=== PATIENT | male | born 2000 | race Caucasian/White ===

== ENCOUNTER → 2018-04-05 09:03 | Outpatient (CLI) | payer MEDICAID, SELFPAY ==
--- NOTE | 2018-04-05 09:06 | MR_ITS ---
MR lumbar spine wo con, MR 3-d myelogram/MRCP HISTORY: ITS.REASON: LUMBAGO WITH SCIATICA Picked up heavy object and back popped and had LBP. Twisted back and has tingling and pain in rt leg. X2WKS. ORDERING PHYSICIAN: Verónica Mak MD PATIENT AGE: 17 years Comparison: None TECHNIQUE: Standard multiplanar multiecho sequences are performed without contrast. 3-D MIP and myelographic images are also rendered and reviewed FINDINGS: There is normal alignment. The spinal cord ends at the L1 level. L1-L2: Unremarkable. L2-L3: Unremarkable. L3-L4: Unremarkable. L4-L5: Mild facet and ligamentum flavum hypertrophic change. Unremarkable disc space. L5-S1: There is mild degenerative disc disease with decrease in the disc space and mild disc desiccation. There is a small broadbase Central and left paracentral disc protrusion which abuts the anteromedial aspect of the left S1 nerve root with mild left lateral recess narrowing. No canal stenosis or other significant anomalies. IMPRESSION: 1. Small broad-based central/left paracentral disc protrusion at L5-S1 causing mild left lateral recess narrowing and abutting the anteromedial aspect of the left S1 nerve root 2. Otherwise negative MRI of the lumbar spine
--- NOTE | 2018-04-05 09:12 | XR_ITS ---
XR orbit bilateral min 4V HISTORY: History of metallic foreign body in the eyes. Clearance for MRI needed ITS.REASON: RULE OUT METAL FOREIGN BODY FOR MRI ORDERING PHYSICIAN: Verónica Mak MD PATIENT AGE: 17 years Comparison: None TECHNIQUE: AP views are obtained of the orbits with the patient looking up and down FINDINGS: No radio opaque foreign bodies evident. IMPRESSION: No radio opaque orbital foreign body identified
== END ==
PROVIDERS: PCP Family Medicine; Visit Provider Emergency Medicine
DX: H05.53 Retained (old) foreign body following penetrating wound of bilateral orbits (principal); M54.41 Lumbago with sciatica, right side; M54.42 Lumbago with sciatica, left side
CPT/HCPCS: 70200; 72148; 76376

== ENCOUNTER 2018-04-24 11:00 | Outpatient (RCR) | payer MEDICAID, SELFPAY ==
--- NOTE | 2018-04-05 12:02 | HMH.PTOPEV ---
PT Outpatient Evaluation Rehab PT Outpatient Evaluation Start: 04/05/18 11:17 Freq: Status: Active Protocol: Document 04/05/18 11:46 SILVESTRE (Rec: 04/05/18 12:02 MAURIGURJIT [id number]) Electronically Signed By Tristen Nieto, PT 04/05/18 11:46 Outpatient Therapy Subjective History Subjective History Patient is a 17 year old male presenting to outpatient PT with reports of acute low back pain with intermittent BLE (R >L) radicular symptoms starting 03/24/18. 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 He reports that he felt a pop and his back locked up. Approx 2 weeks later he was performing some twisting activity and experienced shooting pain down both legs which eventually became pain to the RLE only. He most recently was prescribed oral steroids which has provided near full relief of symptoms. Pt had a lumbar spine MRI today. No report of images yet, but images indicate multiple possible disc bulges. Set patient with preventative/maintenance HEP to perform until round of steroids is finished. No other comoribities to report. Chief Complaint Pain Spasms Paresthesia Symptom Type Ache Sharp Dull Shooting Symptoms Relieved By Rest/Positioning Ice Symptoms Aggravated By Sitting Standing Bending/Stooping Physical Activity Walking Lifting Prior Functional Limitations None Current Functional Limitations Reaching Lifting Housework Standing Sitting
== END 2018-04-24 11:10 | disposition home or self-care (01) ==
LOC: PT 11:00
PROVIDERS: Visit Provider Emergency Medicine
DX: M54.41 Lumbago with sciatica, right side (principal); M54.42 Lumbago with sciatica, left side
CPT/HCPCS: 97010; 97014; 97035; 97110; 97140; 97163; G0283

== ENCOUNTER → 2019-09-29 13:26 | Outpatient (CLI) | payer OTHER, SELFPAY ==
[2019-09-30 19:01] LABS: Covid-19 Nasal PCR Sendout UK Not Detected
== END ==
PROVIDERS: PCP Family Medicine; Visit Provider Family Medicine
DX: Z03.818 Encounter for observation for suspected exposure to other biological agents ruled out (principal)
CPT/HCPCS: U0003

== ENCOUNTER 2020-09-20 19:20 | Emergency (ER) | payer OTHER, SELFPAY ==
[2020-09-20 19:32] VITALS: BP 140/84; PULSE 83; RESP 16; TEMP 36.8; O2SAT 98; BMI 21.8
--- NOTE | 2020-09-20 20:10 | HMH.EDUTC ---
[facility] [place] Clinical Impression: Facial laceration Qualifiers: Encounter type: initial encounter Qualified Code(s): S01.81XA - Laceration without foreign body of other part of head, initial encounter Disposition: Home, Self-Care Condition on Discharge: Good Instructions: How to Care for a Laceration After Repair, DI for Laceration Repair -- Simple Additional Instructions: Keep the wound clean and dry. Keep a dressing on it if you are going to be getting it dirty. Watch the for signs of infection, such as redness, swelling, drainage, fever. etc. Take tylenol or ibuprofen for pain. Follow up with your regular doctor. Return in 5 days to have the sutures removed. GO TO THE ER FOR ANY WORSENING SYMPTOMS OR CONCERNS. Referrals: Flavio Oscar MD [Primary Care Provider] - Time of Disposition: 20:15 Medical Decision Making - Medical Records Medical records reviewed: No: I reviewed the patient's medical records. - Nba Inquiry Pt receiving controlled substance: No Vital Signs: 09/20/20 19:32 09/20/20 20:12 Temperature 98.3 F 98 F Temperature Source Oral Pulse Rate 83 Pulse Rate [Right] 83 Respiratory Rate 16 14 Blood Pressure 140/84 Blood Pressure [Right Arm] 140/84 Blood Pressure Mean [Right Arm] 102 02 Sat by Pulse Oximetry 98 Orders (Tests/Meds): ED MEDICATIONS Discontinued Medications Generic Name Dose Route Start Last Admin Trade Name Dallasq PRN Reason Stop Dose Admin Lidocaine HCl 5 ml 09/20/20 20:08 09/20/20 20:11 Lidocaine 1% 5ml Pf Vial IJ 09/20/20 20:09 5 ml ONCE ONE Administration [facility] [place] - General Stated complaint: busted lip with rachet Time Seen by Provider: 09/20/20 19:35 Mode of Arrival: Ambulatory Source of Information: Patient Limitations: No Limitations Description of Symptoms (Recalled from Triage Doc. 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 right below his lip is split as well. pt states it did not go all the way through. HEENT Symptoms (Recalled from RN notes): No Resp Symptoms (Recalled from RN notes): No Skin Symptoms (Recalled from RN notes): Yes (abrasioin to face) MS Symptoms (Recalled from RN notes): No Functional Status (Recalled from RN notes): na - History of Present Illness Provider Complaint: He states that before he came here he was working on something with a wrench. The wrench slipped off the bolt and it hit him on his chin just below his bottom lip. He denies any tooth chips or injury. He denies that the laceration goes all the way thru his lip. - Related Data Home Medications Medication Instructions Recorded Confirmed No Known Home Medications 04/19/19 01/22/20 Allergies Allergy/AdvReac Type Severity Reaction Status Date / Time No Known Allergies Allergy Verified 09/20/20 19:35 - Worker's Comp Is this a Worker's Comp case?: No [facility] History - Hepatitis A Screen Drug use history?: No High risk sexual behaviors?: No History of sexually transmitted infection?: No Currently employed?: No Childcare worker?: No Do you have indoor plumbing?: Yes Do you have electricity?: Yes Attestation statement:: This patient has been screened for Hepatitis A risk factors. I have reviewed the patient's past medical history: Yes Medical History: Reports:: Heart Murmur Denies:: Cancer, Diabetes Mellitus Type 1, Diabetes Mellitus Type 2, MRSA Other Surgeries: Yes: No Previous Surgery Amputation: No - Social History Smoking Status: Current every day smoker Tobacco Type: cigarettes # Packs/Day (cigarettes): 1 Alcohol Intake: never Occupational Status: employed Housing: house Family Hx:: No significant family history ROS Obtained: Yes All systems reviewed & no additional complaints - Constitutional Constitutional: Denies chills, Denies fever(s) - Eyes Eyes: Denies change in vision, Denies eye discharge - Musculoskeletal Musculoskeletal: Denies join
[2020-09-20 20:12] VITALS: BP 140/84; PULSE 83; RESP 14; TEMP 36.6
== END 2020-09-20 20:35 | disposition home or self-care (01) ==
PROVIDERS: Emergency Provider Nurse Practitioner Family; PCP Family Medicine
DX: S01.81XA Laceration without foreign body of other part of head, initial encounter (principal); W22.8XXA Striking against or struck by other objects, initial encounter; Y92.89 Other specified places as the place of occurrence of the external cause; F17.210 Nicotine dependence, cigarettes, uncomplicated
CPT/HCPCS: 12001; 96372; 99202; G0463

== ENCOUNTER 2020-09-25 10:38 | Emergency (ER) | payer OTHER, SELFPAY ==
[2020-09-25 10:40] VITALS: BP 122/87; PULSE 78; RESP 18; TEMP 37.1; BMI 21.8
[2020-09-25 10:45] VITALS: BP 122/87; PULSE 78; RESP 18; TEMP 37.1; O2SAT 96
== END 2020-09-25 10:50 | disposition home or self-care (01) ==
PROVIDERS: Emergency Provider Nurse Practitioner; PCP Family Medicine
DX: S01.01XD Laceration without foreign body of scalp, subsequent encounter (principal)

== ENCOUNTER 2020-09-27 10:54 | Emergency (ER) | payer OTHER, SELFPAY ==
[2020-09-27 10:55] VITALS: BP 114/78; PULSE 88; RESP 17; TEMP 36.8; O2SAT 99; BMI 31.1
--- NOTE | 2020-09-27 11:23 | HMH.EDUTC ---
[facility] [place] Clinical Impression: Low back pain Qualifiers: Chronicity: unspecified Back pain laterality: unspecified Sciatica presence: with sciatica Sciatica laterality: bilateral sciatica Qualified Code(s): M54.42 - Lumbago with sciatica, left side Disposition: Home, Self-Care Condition on Discharge: Good Instructions: Low Back Pain, DI for Low Back Pain, Cyclobenzaprine, Etodolac Additional Instructions: *Etodolac deng 8 hours with meal as needed for pain/inflammation *Remember you had a Toradol shot in the clinic today, which is similar to Etodolac so do take for the next 8-10 hours *Not additional anti-inflammatory like motrin, aleve, advil with the above amount of ibuprofen. You can still take Tylenol every 4 hours as needed if you need something else for pain *Ice 20 minutes every 2 hours for the first 48 hours after the initial injury followed by moist heat every 20 minutes 3-4 times a day to affected area *Muscle relaxer every 8 hours as needed for muscle spasms but remember, it WILL cause drowsiness You cannot take it and drive, operate machinery or care for small children. *Keep this area active, no movement leads to more stiffness, However take it easy and avoid heavy lifting pushing or pulling *Follow up with you family doctor if no improvement for further treatment Prescriptions: Etodolac 200 mg PO Q8HP PRN #15 cap PRN Reason: Moderate Pain Transmission Status: Pending to [facility] Cyclobenzaprine HCl [Flexeril 10mg tablet] 10 mg PO Q8HP PRN #15 tab PRN Reason: Muscle Spasm Transmission Status: Pending to [facility] Referrals: Flavio Oscar MD [Primary Care Provider] - As needed Time of Disposition: 12:04 Medical Decision Making - Nba Inquiry Pt receiving controlled substance: No Nba was queried for this patient: No Vital Signs: 09/27/20 10:55 Temperature 98.3 F Temperature Source Oral Pulse Rate [Right Brachial] 88 Respiratory Rate 17 Blood Pressure [Right Arm] 114/78 Blood Pressure Mean [Right Arm] 90 Blood Pressure Source [Right Arm] Automatic Cuff Blood Pressure Position [Right Arm] Sitting 02 Sat by Pulse Oximetry 99 Oxygen Delivery Method Room Air Orders (Tests/Meds): ED MEDICATIONS Discontinued Medications Generic Name Dose Route Start Last Admin Trade Name Dallasq PRN Reason Stop Dose Admin Ketorolac Tromethamine 60 mg 09/27/20 11:33 09/27/20 11:50 Ketorolac 60mg/2ml Vial IM 09/27/20 11:34 60 mg ONCE ONE Administration Methylprednisolone Sodium Succinate 125 mg 09/27/20 11:33 09/27/20 11:49 Methylprednisolone Sod Succ 125mg Vial IM 09/27/20 11:34 125 mg ONCE ONE Administration [facility] [place]PI - General Stated complaint: lower back pain Time Seen by Provider: 09/27/20 11:23 Mode of Arrival: Ambulatory Source of Information: Patient Limitations: No Limitations Description of Symptoms (Recalled from Triage Doc. by RN): PATIENT C/O LOWER BACK PAIN. STATES HIS BACK GAVE OUT WHILE HE WAS PLAYING WITH HIS CHILD YESTERDAY HEENT Symptoms (Recalled from RN notes): No Resp Symptoms (Recalled from RN notes): No Skin Symptoms (Recalled from RN notes): No MS Symptoms (Recalled from RN notes): Yes Functional Status (Recalled from RN notes): WNL - History of Present Illness Provider Complaint: Patient states that he has back problems States that he was playing with his child yesterday and felt his back 'give out' States that ever since he has been having spasm like pain that is worse with certain movements and feels like it is radiating down into his buttock area and upper legs Denies loss of control of bowel or bladder - Related Data Home Medications Medication Instructions Recorded Confirmed Escitalopram Oxalate [Lexapro] 20 mg PO DAILY 09/27/20 09/27/20 Previous Rx's Medication Instructions Recorded Cyclobenzaprine HCl [Flexeril 10mg 10 mg PO Q8HP PRN #15 tab 09/27/20 tablet] Etodolac 200 mg PO Q8HP PRN
[2020-09-27 12:07] VITALS: BP 114/78; PULSE 88; RESP 17; TEMP 36.8; O2SAT 99
== END 2020-09-27 12:10 | disposition home or self-care (01) ==
PROVIDERS: Emergency Provider Nurse Practitioner; PCP Family Medicine
DX: M54.42 Lumbago with sciatica, left side (principal)
CPT/HCPCS: 96372; 99202; G0463

== ENCOUNTER 2020-11-15 13:59 | Emergency (ER) | payer SELFPAY ==
[2020-11-15 16:36] VITALS: BP 142/68; PULSE 86; RESP 19; TEMP 37.2; O2SAT 96; BMI 21.2
[2020-11-15 16:41] VITALS: BP 142/68; PULSE 86; RESP 20; TEMP 37.2
--- NOTE | 2020-11-15 16:52 | HMH.EDUTC ---
[facility] [place] Disposition Clinical Impression: Pneumonia Qualifiers: Pneumonia type: due to unspecified organism Laterality: right Lung location: upper lobe of lung Qualified Code(s): J18.9 - Pneumonia, unspecified organism Disposition: Home, Self-Care Condition on Discharge: Good Instructions: DI for Pneumonia -- Adult Additional Instructions: You have been tested for COVID19. Please isolate as if you are positive until test results are received. Prescriptions: Cefdinir [Omnicef 300mg Capsule] 300 mg PO BID #20 cap Transmission Status: Pending to [facility] predniSONE [Prednisone 20mg Tab] 20 mg PO BID 5 Days #10 tab Transmission Status: [facility] Referrals: Flavio Oscar MD [Primary Care Provider] - Forms: Work/School Release Time of Disposition: 17:02 Medical Decision Making - Nba Inquiry Pt receiving controlled substance: No Vital Signs: 11/15/20 16:36 11/15/20 16:41 Temperature 99 F 99 F Temperature Source Oral Pulse Rate 86 Pulse Rate [Left] 86 Respiratory Rate 19 20 Blood Pressure 142/68 H Blood Pressure [Right Arm] 142/68 H Blood Pressure Mean [Right Arm] 92 02 Sat by Pulse Oximetry 96 Orders (Tests/Meds): ORDERS Category Date Time Status Covid-19 Nasal PCR ([facility]) Routine Lab 11/15/20 16:33 Received [facility] [place] HPI - General Stated complaint: covid test/symptoms Time Seen by Provider: 11/15/20 16:58 Mode of Arrival: Ambulatory Source of Information: Patient Limitations: No Limitations Description of Symptoms (Recalled from Triage Doc. by RN): pt c/o sweating, WAN, blurred vision, and x4 days HEENT Symptoms (Recalled from RN notes): Yes (WAN and blurred vision) Resp Symptoms (Recalled from RN notes): No Skin Symptoms (Recalled from RN notes): No MS Symptoms (Recalled from RN notes): No Functional Status (Recalled from RN notes): body aches - History of Present Illness Provider Complaint: Patient has had headache, sore throat, body aches, chills, nausea, cough. Wakes up soaked in sweat but not sure about fever. No rash. No loss of taste or smell. Onset (ago): day(s) (3) Relieving factors: none Exacerbating factors: none Associated symptoms: cough, fever/chills, malaise Treatments prior to arrival: none - Related Data Home Medications Medication Instructions Recorded Confirmed Escitalopram Oxalate [Lexapro] 20 mg PO DAILY 09/27/20 09/27/20 Previous Rx's Medication Instructions Recorded Cyclobenzaprine HCl [Flexeril 10mg 10 mg PO Q8HP PRN #15 tab 09/27/20 tablet] Etodolac 200 mg PO Q8HP PRN #15 cap 09/27/20 Cefdinir [Omnicef 300mg Capsule] 300 mg PO BID #20 cap 11/15/20 predniSONE [Prednisone 20mg 20 mg PO BID 5 Days #10 tab 11/15/20 Tab] Allergies Allergy/AdvReac Type Severity Reaction Status Date / Time No Known Allergies Allergy Verified 09/20/20 19:35 - Worker's Comp Is this a Worker's Comp case?: No [facility] History - Hepatitis A Screen Drug use history?: No High risk sexual behaviors?: No History of sexually transmitted infection?: No Currently employed?: No Childcare worker?: No Do you have indoor plumbing?: Yes Do you have electricity?: Yes Attestation statement:: This patient has been screened for Hepatitis A risk factors. I have reviewed the patient's past medical history: Yes Medical History: Reports:: Heart Murmur Denies:: Cancer, Diabetes Mellitus Type 1, Diabetes Mellitus Type 2, MRSA Other Surgeries: Yes: No Previous Surgery Amputation: No - Social History Smoking Status: Current every day smoker Tobacco Type: cigarettes # Packs/Day (cigarettes): 1 Alcohol Intake: never Occupational Status: other Housing: house Family Hx:: No significant family history ROS Obtained: Yes All systems reviewed & no additional complaints - Constitutional Constitutional: Reports body ache, Reports chills, Reports fatigue, Reports headache(s), Reports malaise, Reports night sweats
== END 2020-11-15 17:17 | disposition home or self-care (01) ==
PROVIDERS: Emergency Provider Physician Assistant; PCP Family Medicine
DX: U07.1 COVID-19 (principal); J12.82 Pneumonia due to coronavirus disease 2019
CPT/HCPCS: 99202; G0463; U0003

== ENCOUNTER 2021-12-06 14:59 | Emergency (ER) | payer SELFPAY ==
[2021-12-06 16:57] VITALS: BP 149/91; PULSE 80; RESP 16; TEMP 37; O2SAT 97; BMI 24.3
--- NOTE | 2021-12-06 17:03 | EXP.UTC ---
Discharge Plan Disposition Patient Disposition: Home, Self-Care Condition: Good Prescriptions Prescriptions: New cephalexin 500 mg capsule 500 mg PO QID Qty: 40 0RF sulfamethoxazole-trimethoprim [Bactrim DS] 800-160 mg tablet 1 tab PO BID Qty: 20 0RF mupirocin 2 % ointment 1 applic topical TID 10 Days Qty: 22 0RF Referrals Follow up/Referrals: Flavio Oscar MD [Primary Care Provider] - See instructions Activity Restrictions/Add. Instructions Additional Instructions/Restrictions: Dont cut on these areas this could lead to worsening infections Take medication as prescribed Return if needed Straight to ER if any life threatening symptoms Clinical Impressions Clinical Impression: Cellulitis Instructions Patient Instructions: Cellulitis Discharge ED Provider: Litzy Bar [facility] General Stated complaint: sores on leg Mode of Arrival: Ambulatory Source of Information: Patient Limitations: No Limitations Time Seen by Provider: 12/06/21 17:03 Description of Symptoms (Recalled from Triage Doc. by RN): pt comes in with c/o sore on leg and swelling. sores have been there for 4 days HEENT Symptoms (Recalled from RN notes): No Resp Symptoms (Recalled from RN notes): No Skin Symptoms (Recalled from RN notes): Yes MS Symptoms (Recalled from RN notes): No Functional Status (Recalled from RN notes): n/a History of Present Illness Provider Complaint: Patient states that he has been having bump like areas popping up on his legs and arms States that he has cut several of them with a razor blade and got the pus out but the ones on his legs is looking red and infected so he came in to get them checked out Related Data Previous Rx's Medication Instructions Recorded cephalexin 500 mg capsule 500 mg PO QID #40 caps 12/06/21 mupirocin 2 % topical ointment 1 applic topical TID 10 days #22 12/06/21 grams sulfamethoxazole 800 1 tab PO BID #20 tabs 12/06/21 mg-trimethoprim 160 mg tablet (Bactrim DS) Allergies Allergy/AdvReac Type Severity Reaction Status Date / Time No Known Allergies Allergy Verified 12/06/21 16:59 Worker's Comp Is this a Worker's Comp case?: No PFSH PFSH Social History Smoking Status: Current every day smoker tobacco type: cigarettes packs per day: 1 second hand exposure: Yes alcohol intake: never current occupational status: other Travel in the last 8 weeks: None housing: house ROS Obtained: Yes All systems reviewed & no additional complaints except as documented and Yes Systems reviewed as appropriate & no additional complaints except as documented Constitutional Constitutional: Reports system reviewed and no additional complaints, except as documented and Reports as per HPI ENT Ears, Nose, Mouth, and Throat: Reports system reviewed and no additional complaints, except as documented and Reports as per HPI Cardiovascular Cardiovascular: Reports system reviewed and no additional complaints, except as documented and Reports as per HPI Respiratory Respiratory: Reports system reviewed and no additional complaints, except as documented and Reports as per HPI Musculoskeletal Musculoskeletal: Reports system reviewed and no additional complaints, except as documented and Reports as per HPI Integumentary/Breasts Skin/Breast: Reports system reviewed and no additional complaints, except as documented, Reports as per HPI and Reports other (bump like lesions on arms and legs that is infected) Physical Exam General General appearance: alert and in no apparent distress Respiratory Respiratory exam: Present normal lung sounds bilaterally; Absent respiratory distress or wheezes Cardiovascular Cardiovascular exam: Present regular rate, normal rhythm and normal heart sounds Neurological Exam Neurological exam: Present alert, oriented X3 and normal gait Skin Skin exam: Present other Expanded Skin Exam Comment:
[2021-12-06 17:19] VITALS: BP 149/91; PULSE 80; RESP 16; TEMP 37
== END 2021-12-06 17:22 | disposition home or self-care (01) ==
PROVIDERS: Emergency Provider Nurse Practitioner; PCP Family Medicine
DX: L03.115 Cellulitis of right lower limb (principal)
CPT/HCPCS: 99212; G0463

== ENCOUNTER 2022-05-09 09:15 | Emergency (ER) | payer SELFPAY ==
[2022-05-09 09:30] VITALS: BP 148/94; PULSE 63; RESP 18; TEMP 37; O2SAT 97; BMI 25.7
[2022-05-09 09:41] LABS: UTC Strep Screen (Rapid) Negative (Negative)
--- NOTE | 2022-05-09 09:55 | EXP.UTC ---
Discharge Plan Disposition Patient Disposition: Home, Self-Care Condition: Good Prescriptions Prescriptions: New prednisone 10 mg tablet 10 mg PO BID 3 Days Qty: 6 0RF azithromycin [Zithromax] 250 mg tablet 250 mg PO UD DOSE PK Qty: 6 0RF Rx Instructions: Take two (2) tablets today, then one (1) tablet days #2 thru #5 [id number] [Bromfed DM] 2-30-10 mg/5 mL Syrup 5 ml PO Q6H PRN (Reason: Cough) Qty: 240 0RF No Action cephalexin 500 mg capsule 500 mg PO QID Qty: 40 0RF sulfamethoxazole-trimethoprim [Bactrim DS] 800-160 mg tablet 1 tab PO BID Qty: 20 0RF mupirocin 2 % ointment 1 applic topical TID 10 Days Qty: 22 0RF Referrals Follow up/Referrals: Provider,Referral, MD [Primary Care Provider] - See instructions Activity Restrictions/Add. Instructions Additional Instructions/Restrictions: Drink plenty of fluids. Take tylenol or ibuprofen for pain or fever. Take the medications as directed. Follow up with your regular doctor. GO TO THE ER FOR ANY WORSENING SYMPTOMS Clinical Impressions Clinical Impression: Sinusitis, Pharyngitis Instructions Patient Instructions: Sinusitis, DI for Sinusitis Discharge ED Provider: Christopher Olsen [facility] [place] General Stated complaint: congestion, sore throat soa dry cough Time Seen by Provider: 05/09/22 09:55 History of Present Illness Provider Complaint: He states that he has had sore throat, sinus congestion and a cough for the past 3 days. Related Data Previous Rx's Medication Instructions Recorded cephalexin 500 mg capsule 500 mg PO QID #40 caps 12/06/21 mupirocin 2 % topical ointment 1 applic topical TID 10 days #22 12/06/21 grams sulfamethoxazole 800 1 tab PO BID #20 tabs 12/06/21 mg-trimethoprim 160 mg tablet (Bactrim DS) azithromycin 250 mg tablet 250 mg PO UD DOSE PK #6 tabs 05/09/22 (Zithromax) [id number]-[id number] 5 ml PO Q6H PRN Cough #240 mL 05/09/22 2 mg-30 mg-10 mg/5 mL oral syrup (Bromfed DM) prednisone 10 mg tablet 10 mg PO BID 3 days #6 tabs 05/09/22 Allergies Allergy/AdvReac Type Severity Reaction Status Date / Time No Known Allergies Allergy Verified 12/06/21 16:59 [facility] Disclaimer: The information contained in this section may have been updated after the patient was seen, as this information can be updated by other users. Medical History Anxiety Social History Smoking Status: Current every day smoker tobacco type: cigarettes packs per day: 1 second hand exposure: Yes alcohol intake: never current occupational status: other Travel in the last 8 weeks: None housing: house ROS Obtained: Yes All systems reviewed & no additional complaints except as documented Constitutional Constitutional: Reports chills and Reports fever(s) Eyes Eyes: Denies eye discharge ENT Ears, Nose, Mouth, and Throat: Reports as per HPI Cardiovascular Cardiovascular: Denies chest pain Respiratory Respiratory: Denies chest congestion and Reports cough Gastrointestinal Gastrointestingal: Reports nausea; Denies abdominal pain, constipation, cramping, diarrhea or vomiting Musculoskeletal Musculoskeletal: Denies arthralgias Integumentary/Breasts Skin/Breast: Denies rash Neurologic Neurologic: Denies paresthesias Physical Exam General General appearance: alert and in no apparent distress Head Head exam: atraumatic, normocephalic and normal inspection Eye Eye exam: Present normal appearance, PERRL and EOMI ENT ENT exam: Present mucous membranes moist and normal external ear exam Expanded ENT Exam TM/Canal exam: Bilateral TM: erythema and bulging Nose exam: Absent sinus tenderness Mouth exam: Present normal external inspection; Absent drooling Teeth exam: Present normal inspection Throat exam: Present tonsillar erythema, tonsillomegaly and tons
[2022-05-09 10:07] VITALS: BP 148/94; PULSE 63; RESP 18; TEMP 37; O2SAT 97
== END 2022-05-09 10:13 | disposition home or self-care (01) ==
PROVIDERS: Emergency Provider Nurse Practitioner Family
DX: J32.9 Chronic sinusitis, unspecified (principal); J02.9 Acute pharyngitis, unspecified
CPT/HCPCS: 87880; 99212; 99213; G0463

== ENCOUNTER 2022-06-06 09:09 | Emergency (ER) | payer SELFPAY ==
[2022-06-06 09:20] VITALS: BP 149/85; PULSE 65; RESP 20; TEMP 37.2; O2SAT 97; BMI 25.7
[2022-06-06 09:30] LABS: UTC Strep Screen (Rapid) Positive (Negative)
--- NOTE | 2022-06-06 09:36 | EXP.UTC ---
Discharge Plan Disposition Patient Disposition: Home, Self-Care Condition: Good Prescriptions Prescriptions: New methylprednisolone [Medrol (Jr)] 4 mg tablets,dose pack See Rx Instructions .Route .COMPLEX 6 Days Qty: 21 0RF Rx Instructions: taper pack; cefdinir 300 mg capsule 300 mg PO BID Qty: 20 0RF Referrals Follow up/Referrals: Provider,Referral, [Primary Care Provider] - See instructions Activity Restrictions/Add. Instructions Additional Instructions/Restrictions: *Monitor Temp, Over the counter Motrin or Tylenol as directed/as needed Tylenol every 4 hours and Motrin every 6 hours (as long as your family doctor has told you that you can take it) for fever or pain. and straight to ER if unable to lower temp less than 101.0 after medication given *Warm salt water gargles may help to soothe the throat *Throat Lozenges? *Warm fluids like tea with honey may help to soothe the throat? *Sleep elevated *Humidifier/Vaporizer *If you did not take Penicillin shot or was unable to, start taking antibiotic immediately and make sure that you take it for the FULL length of time although you should start to feel better in 24-48 hours *change toothbrush and toothpaste 24-48 hours after starting to take antibiotics so you do not reinfect yourself Monitor Temp. Tylenol and/or Ibuprofen as needed. ER if fever is no less than 101 despite alternating Tylenol and Ibuprofen * Encourage fluids, water, Gatorade, powerade, pedialyte if infant/toddler/or child *Cold fluids, popsicles and ice cream may feel good on his throat Follow up IMMEDIATELY for new or worsening symptoms or no Noticeable improvement over the next 48-72 hours. 911 for difficulty breathing or swallowing Clinical Impressions Clinical Impression: Strep throat Stand Alone Forms Stand Alone Forms: Work/School Release Instructions Patient Instructions: DI for Strep Throat, Strep Throat Discharge ED Provider: Litzy Bar [facility] General Stated complaint: sore throat, tired feeling Mode of Arrival: Ambulatory Source of Information: Patient Limitations: No Limitations Time Seen by Provider: 06/06/22 09:38 Description of Symptoms (Recalled from Triage Doc. by RN): sore thorat, fatigue HEENT Symptoms (Recalled from RN notes): Yes Resp Symptoms (Recalled from RN notes): No Skin Symptoms (Recalled from RN notes): No MS Symptoms (Recalled from RN notes): No Functional Status (Recalled from RN notes): n/a History of Present Illness Provider Complaint: Patient states that he has been having sinus congestion and pressure and for the last couple of days he has been having sore throat that has continued to get worse so today when his throat was still hurting he came in Related Data Previous Rx's Medication Instructions Recorded cefdinir 300 mg capsule 300 mg PO BID #20 caps 06/06/22 methylprednisolone 4 mg tablets in See Rx Instructions .Route 06/06/22 a dose pack (Medrol (Jr)) .COMPLEX 6 days #21 tabs Allergies Allergy/AdvReac Type Severity Reaction Status Date / Time No Known Allergies Allergy Verified 06/06/22 09:25 Worker's Comp Is this a Worker's Comp case?: [facility] Disclaimer: The information contained in this section may have been updated after the patient was seen, as this information can be updated by other users. Medical History Anxiety Social History Smoking Status: Current every day smoker tobacco type: cigarettes packs per day: 1 second hand exposure: Yes alcohol intake: never current occupational status: other Travel in the last 8 weeks: None housing: house ROS Obtained: Yes All systems reviewed & no additional complaints except as documented and Yes Systems reviewed as appropriate & no additional complaints except as documented Constitutional Constitutional: Reports sys
[2022-06-06 09:49] VITALS: BP 149/85; PULSE 65; RESP 20; TEMP 37.2; O2SAT 97
== END 2022-06-06 09:49 | disposition home or self-care (01) ==
PROVIDERS: Emergency Provider Nurse Practitioner
DX: J02.0 Streptococcal pharyngitis (principal); R53.83 Other fatigue
CPT/HCPCS: 87880; 99212; 99214; G0463

== ENCOUNTER 2022-07-03 11:07 | Emergency (ER) | payer BC, SELFPAY ==
[2022-07-03 11:20] VITALS: BP 133/74; PULSE 64; RESP 20; TEMP 37; O2SAT 98; BMI 25.7
[2022-07-03 11:38] LABS: UTC Strep Screen (Rapid) Negative (Negative)
--- NOTE | 2022-07-03 11:38 | EXP.UTC ---
Discharge Plan Disposition Patient Disposition: Home, Self-Care Condition: Good Referrals Follow up/Referrals: Provider,Referral, [Primary Care Provider] - See instructions Activity Restrictions/Add. Instructions Additional Instructions/Restrictions: *Monitor Temp, Over the counter Motrin or Tylenol as directed/as needed Tylenol every 4 hours and Motrin every 6 hours (as long as your family doctor has told you that you can take it) for fever or pain. and straight to ER if unable to lower temp less than 101.0 after medication given *Warm salt water gargles may help to soothe the throat *Throat Lozenges? *Warm fluids like tea with honey may help to soothe the throat? *Sleep elevated *Humidifier/Vaporizer Over the counter Maalox rinse in your mouth may help with blisters/canker sores Your throat swab was sent for culture. Those results are typically sent to your primary care. Be sure to follow up in 2-3 days with your family doctor/primary care physician if no improvement so they can review those result and treat if necessary. If you don?t have a primary care doctor, I recommend you get one but in the mean time, you will have to return to a walk in clinic Follow up IMMEDIATELY for new or worsening symptoms or no Noticeable improvement over the next 48-72 hours. 911 for difficulty breathing or swallowing Clinical Impressions Clinical Impression: Sore throat Instructions Patient Instructions: Sore Throat, Canker Sores (Alternative Therapy), DI for Aphthous Ulcers (Canker Sores) Discharge ED Provider: Litzy Bar [facility] General Stated complaint: Sore throat, bumps on tongue Mode of Arrival: Ambulatory Source of Information: Patient Limitations: No Limitations Time Seen by Provider: 07/03/22 11:38 Description of Symptoms (Recalled from Triage Doc. by RN): PATIENT C/O SORE THROAT AND TONGUE X 3 DAYS. HE REPORTS HE WAS TREATED FOR STREP APPROX 2 WEEKS AGO, HOWEVER HE STATES HE DID NOT FINISH HIS ANTIBIOTICS BECAUSEA HIS THROAT WAS FEELING BETTER HEENT Symptoms (Recalled from RN notes): Yes Resp Symptoms (Recalled from RN notes): No Skin Symptoms (Recalled from RN notes): No MS Symptoms (Recalled from RN notes): No Functional Status (Recalled from RN notes): WNL History of Present Illness Provider Complaint: Patient states that he was seen and treated a couple weeks ago for strep throat but didnt finish the antibiotic States that he stopped taking it when he felt better States that his throat is sore again and he has a couple little blisters on the end of his tongue that feels sore so he came in to see if he may have strep throat again Related Data Allergies Allergy/AdvReac Type Severity Reaction Status Date / Time No Known Allergies Allergy Verified 06/06/22 09:25 Worker's Comp Is this a Worker's Comp case?: No [facility] Disclaimer: The information contained in this section may have been updated after the patient was seen, as this information can be updated by other users. Medical History Anxiety Social History Smoking Status: Current every day smoker tobacco type: cigarettes packs per day: 1 second hand exposure: Yes alcohol intake: never current occupational status: other Travel in the last 8 weeks: None housing: house ROS Obtained: Yes All systems reviewed & no additional complaints except as documented and Yes Systems reviewed as appropriate & no additional complaints except as documented Constitutional Constitutional: Reports system reviewed and no additional complaints, except as documented and Reports as per HPI ENT Ears, Nose, Mouth, and Throat: Reports system reviewed and no additional complaints, except as documented and Reports sore throat Cardiovascular Cardiovascular: Reports system reviewed and no additional complaints, except as documented and Reports as per H
[2022-07-03 11:44] VITALS: BP 133/74; PULSE 64; RESP 20; TEMP 37; O2SAT 98
== END 2022-07-03 11:47 | disposition home or self-care (01) ==
PROVIDERS: Emergency Provider Nurse Practitioner
DX: J02.9 Acute pharyngitis, unspecified (principal); F17.210 Nicotine dependence, cigarettes, uncomplicated
CPT/HCPCS: 87880; 99212; 99213; G0463

== ENCOUNTER 2022-08-29 06:54 | Emergency (ER) | payer BC, SELFPAY ==
[2022-08-29] VITALS (10 sets, daily range): BP systolic 95–153; BP diastolic 59–106; PULSE 49–67; RESP 17–20; TEMP 36.7–36.8; O2SAT 99–100; BMI 24.6; BMI 20.9
--- NOTE | 2022-08-29 07:00 | CT_ITS ---
FINAL REPORT TECHNIQUE: After the administration of intravenous contrast, axial images were obtained through the abdomen and pelvis by computed tomography. This study was performed with technique to keep radiation doses as low as reasonably achievable, (ALARA). Individualized dose reduction techniques using automated exposure control or adjustment of the MA and/or KV according to the patient's size were employed. CLINICAL HISTORY: abd pain, hernia pain FINDINGS: Abdomen: The lung bases are clear. The liver is normal in size and attenuation. There is a gallstone with mild gallbladder wall thickening. The spleen is unremarkable. The adrenals are normal. The pancreas is unremarkable. The kidneys enhance appropriately. The aorta is normal in caliber. There is no free fluid or adenopathy. Pelvis: The appendix is normal. The urinary bladder is unremarkable. There is no free fluid or adenopathy. IMPRESSION: Gallstone with mild gallbladder wall thickening. This could be further evaluated with nuclear medicine hepatobiliary scan. Reviewed, Interpreted and Dictated by Nathan Rodriguez III, MD Transcribed by Janett Robertson Authenticated and [facility]
[2022-08-29 07:10] LABS: Basophils % 0.4 % (0.1-2.0); Eosinophils # 0.1 K/mm3 (0.0-0.4); Eosinophils % 2.1 % (0.1-12.0); Hematocrit 43.3 % (42.0-52.0); Lymphocytes # 1.5 K/mm3 (0.7-4.5); Lymphocytes % 28.1 % (10-50); Mean Corpuscular HGB Conc 32.3 g/dL (31.8-35.4); Mean Corpuscular Hemoglobin 29.4 pg (27.0-31.2); Mean Platelet Volume 7.3 fl (7.4-10.4); Monocytes # 0.5 K/mm3 (0.1-1.0); Neutrophils # 3.3 K/mm3 (1.8-7.8); Neutrophils % 60.4 % (37.0-80.0); Platelet Count 272 K/mm3 (142-424); Red Blood Count 4.75 M/mm3 (4.60-6.20); Red Cell Distribution Width 12.8 % (11.5-17.5); White Blood Count 5.4 K/mm3 (4.8-10.8)
--- NOTE | 2022-08-29 07:17 | PC.NURSE ---
PT TO CT AT THIS TIME
[2022-08-29 07:25] LABS: Chloride 101 mmol/L (98-107); Potassium 4.3 mmoL/L (3.5-5.1); Sodium 140 mmol/L (136-145)
--- NOTE | 2022-08-29 07:27 | PC.NURSE ---
PT RETURNED FROM CT
[2022-08-29 07:28] LABS: Anion Gap 14.3 mEq/L (5-15); Blood Urea Nitrogen 20 mg/dl (9-20); Calcium 9.2 mg/dl (8.4-10.2); Carbon Dioxide 29 mmol/L (22.0-30.0); Creatinine Clearance Estimated 113 mL/min (50-200); Estimated Glomerular Filt Rate 92 ml/min (>60); GFR (African American) 111 ML/MIN (>60); Glucose 117 mg/dl (74-100)
--- NOTE | 2022-08-29 07:30 | PC.NURSE ---
DR STEINER AT BEDSIDE
[2022-08-29 07:38] LABS: Alkaline Phosphatase 146 U/L (38-126); Amylase 71 U/L (30-110); Aspartate Amino Transferase 34 U/L (17-59); Bilirubin,Indirect 0.3 mg/dL (0.0-0.9); Bilirubin,Total 0.3 mg/dl (0.2-1.3); Bilirubin,Unconjugated 0.4 mg/dL (0.0-1.1)
[2022-08-29 07:39] LABS: Albumin Level 4.3 g/dl (3.5-5.0); Lipase 39 U/L (23-300); Total Protein,Serum 7.5 g/dl (6.3-8.2)
--- NOTE | 2022-08-29 07:45 | HMH.EDABDPAI ---
Discharge Plan Disposition Patient Disposition: Home, Self-Care Condition: Fair Prescriptions Prescriptions: No Action No Known Home Medications Referrals Follow up/Referrals: Provider,MD Jeferson [Primary Care Provider] - See instructions Nathan Johnson MD [Staff Physician] - 08/30/22 11:00 am Clinical Impressions Clinical Impression: Abdominal pain, Cholelithiasis Instructions Patient Instructions: DI for Acute Abdominal Pain, [place] Diet Discharge ED Provider: Shea STOCK)Babak Abdominal Pain HPI <Babak STOCK)MD - Last Filed: 08/29/22 08:41> General Chief Complaint: Abdominal Pain Stated Complaint: Abdominal pain, vomiting Time Seen by Provider: 08/29/22 07:00 Mode of Arrival: Ambulatory Source of Information: Patient and Medical Record Limitations: No Limitations Description of Symptoms (Recalled from ER Triage Doc. by RN): PT REPORTS GENERALIZED ABDOMINAL PAIN THAT BEGAN ABOUT 0500, WORSE UPPER EPIGASTRIC PAIN, REPORTS HERNIA REPORTS VOMITING, NO BLOOD. LAST BM THIS AM History of Present Illness HPI narrative: acute onset of upper abd pain this am MD complaint: abdominal pain Onset (ago): hour(s) Consistency: intermittent Location: epigastric Severity: moderate Associated symptoms: denies other symptoms Related Data Home Medications Medication Instructions Recorded Confirmed No Known Home Medications 08/29/22 08/29/22 Allergies Allergy/AdvReac Type Severity Reaction Status Date / Time No Known Allergies Allergy Verified 06/06/22 09:25 PFSH <Babak STOCK)MD - Last Filed: 08/29/22 08:41> PFS Disclaimer: The information contained in this section may have been updated after the patient was seen, as this information can be updated by other users. Medical History Anxiety Social History Smoking Status: Never smoker second hand exposure: Yes alcohol intake: never current occupational status: other Travel in the last 8 weeks: None housing: house <Babak STOCK)MD - Last Filed: 08/29/22 08:41> ROS Obtained: Yes All systems reviewed & no additional complaints except as documented Physical Exam <Babak STOCK)MD - Last Filed: 08/29/22 08:41> General General appearance: alert Head Head exam: normocephalic Eye Eye exam: Present PERRL and EOMI; Absent scleral icterus ENT ENT exam: Present mucous membranes moist Neck Neck exam: Present trachea midline Respiratory Respiratory exam: Present normal lung sounds bilaterally; Absent respiratory distress Cardiovascular Cardiovascular exam: Present regular rate; Absent systolic murmur Abdominal Exam Abdominal exam: Present soft and tenderness Abdominal tenderness: Present epigastrium and moderate Extremities Exam Extremities exam: Present full ROM Neurological Exam Neurological exam: Present alert, oriented X3 and CN II-XII intact; Absent motor sensory deficit Psychiatric Psychiatric exam: Present normal affect Skin Skin exam: Absent rash Medical Decision Making <Babak Valdivia (LISA)MD - Last Filed: 08/29/22 08:41> Medical Records Medical records reviewed: Yes I reviewed the patient's medical records. Nba Inquiry Pt receiving controlled substance: No Vital Signs: 08/29/22 06:55 08/29/22 07:30 08/29/22 08:01 Temperature 98.2 F Temperature Source Oral Pulse Rate 60 60 Pulse Rate [Radial] 67 Respiratory Rate 18 Blood Pressure 148/87 H 123/79 Blood Pressure [Right Arm] 153/106 H Blood Pressure Mean 107 93 Blood Pressure Mean [Right Arm] 121 Blood Pressure Source [Right Arm] Automatic Cuff Blood Pressure Position [Right Arm] Sitting 02 Sat by Pulse Oximetry 99 99 Oxygen Delivery Method Room Air 08/29/22 08:30 08/29/22 09:00 08/29/22 09:30 Temperature Temperature Source Pulse Rate 50 L 51 L 49 L Pulse Rate [Radial]
[2022-08-29 07:50] LABS: Alanine Aminotransferase 32 U/L (12-78)
--- NOTE | 2022-08-29 08:07 | PC.NURSE ---
ROUNDED ON PT, RESTING ON LEFT SIDE, NO NEEDS AT THIS TIME
[2022-08-29 08:15] LABS: Appearance,Urine CLEAR (Clear); Bilirubin,Urine Negative (Negative); Blood, Urine Negative (Negative); Color,Urine YELLOW (Yellow); Glucose,Urine (UA) Negative (Negative); Ketones,Urine Negative (Negative); Leukocyte Esterase,Urine Negative (Negative); Microscopic, Urine URINE MICROSCOPIC (MICROSCOPIC); Nitrate,Urine Negative (Negative); Protein,Urine Negative (Negative); Urobilinogen,Urine 0.2 EU/dl (0.2)
[2022-08-29 08:39] LABS: Bacteria,Urine Trace /lpf; Squamous Epithelial Cell,Urine Occasional #/hpf (0-5)
--- NOTE | 2022-08-29 08:40 | US_ITS ---
FINAL REPORT CLINICAL HISTORY: GALLSTONES COMPARISON: CT AP 08/29/2022 FINDINGS: GALLBLADDER ULTRASOUND Technique: Ultrasound images of the right upper quadrant were obtained specifically the gallbladder. Findings: The pancreas is partially obscured. There is mild fatty infiltration of the liver. There is an echogenic focus along the gallbladder wall which may represent polyp or cholesterolosis. No well-defined mobile gallstones identified. There is mild gallbladder wall thickening measuring 4 mm which is nonspecific. Cholecystitis is not excluded. Duct measures 2 mm. IMPRESSION: Possible polyp or cholesterol oasis. Nonspecific mild gallbladder wall thickening. Cholecystitis not excluded. If indicated, nuclear medicine hepatobiliary scan may be helpful. Reviewed, Interpreted and Dictated by Nathan Rodriguez III, MD Transcribed by Yee Love Authenticated and [facility]
--- NOTE | 2022-08-29 08:41 | PC.NURSE ---
RADIOLOGY NOTIFIED OF US ORDER
--- NOTE | 2022-08-29 08:52 | PC.NURSE ---
PT UPDATED ON POC, NO NEEDS AT THIS TIME
--- NOTE | 2022-08-29 09:00 | PC.NURSE ---
rad staff reports 2 pts on the table and then will be down to get pt for u/s
--- NOTE | 2022-08-29 09:31 | PC.NURSE ---
PT TO US
--- NOTE | 2022-08-29 10:05 | PC.NURSE ---
ROUNDED ON PT, UPDATED ON POC. NO NEEDS AT THIS TIME
--- NOTE | 2022-08-29 10:52 | PC.NURSE ---
contacted rad to check on status of u/s results-rad states preliminary available will send down
--- NOTE | 2022-08-29 11:21 | PC.NURSE ---
speaking to Dr Johnson
--- NOTE | 2022-08-29 11:25 | PC.NURSE ---
Pt to see Dr Johnson tomorrow at 1100 AM
== END 2022-08-29 11:35 | disposition home or self-care (01) ==
PROVIDERS: Emergency Provider Emergency Medicine
DX: K80.20 Calculus of gallbladder without cholecystitis without obstruction (principal); F41.9 Anxiety disorder, unspecified; R10.13 Epigastric pain
CPT/HCPCS: 74177; 76705; 80048; 80076; 81001; 82150; 83690; 85025; 96361; 96374; 99285; J2405; Q9967

== ENCOUNTER → 2022-09-12 14:35 | Outpatient (CLI) | payer BC, SELFPAY ==
[2022-09-12 15:38] LABS: Basophils % 0.4 % (0.1-2.0); Eosinophils # 0.1 K/mm3 (0.0-0.4); Hematocrit 44.7 % (42.0-52.0); Hemoglobin 14.6 g/dL (14.1-18.0); Lymphocytes # 1.6 K/mm3 (0.7-4.5); Mean Corpuscular HGB Conc 32.6 g/dL (31.8-35.4); Mean Corpuscular Hemoglobin 29.9 pg (27.0-31.2); Mean Corpuscular Volume 91.8 fl (80-94); Mean Platelet Volume 7.5 fl (7.4-10.4); Monocytes # 0.5 K/mm3 (0.1-1.0); Monocytes % 8.9 % (1.7-9.3); Neutrophils % 57.8 % (37.0-80.0); Platelet Count 293 K/mm3 (142-424); Red Blood Count 4.87 M/mm3 (4.60-6.20); Red Cell Distribution Width 12.8 % (11.5-17.5); White Blood Count 5.2 K/mm3 (4.8-10.8)
[2022-09-12 16:03] LABS: Alanine Aminotransferase 31 U/L (12-78); Albumin Level 4.7 g/dl (3.5-5.0); Albumin/Globulin Ratio 1.7 (1.1-1.8); Alkaline Phosphatase 145 U/L (38-126); Anion Gap 14.2 mEq/L (5-15); Aspartate Amino Transferase 27 U/L (17-59); Bilirubin,Total 0.5 mg/dl (0.2-1.3); Blood Urea Nitrogen 17 mg/dl (9-20); Calcium 9.2 mg/dl (8.4-10.2); Carbon Dioxide 29 mmol/L (22.0-30.0); Chloride 101 mmol/L (98-107); Estimated Glomerular Filt Rate 104 ml/min (>60); GFR (African American) 125 ML/MIN (>60); Globulin 2.8 g/dL (1.3-3.2); Glucose 109 mg/dl (74-100); Potassium 4.2 mmoL/L (3.5-5.1); Sodium 140 mmol/L (136-145); Total Protein,Serum 7.5 g/dl (6.3-8.2)
== END ==
PROVIDERS: Visit Provider Surgery
DX: Z01.812 Encounter for preprocedural laboratory examination (principal); K80.20 Calculus of gallbladder without cholecystitis without obstruction
CPT/HCPCS: 36415; 80053; 85025

== ENCOUNTER 2022-09-19 06:01 | Day surgery (SDC) | payer BC, SELFPAY ==
[2022-09-15 12:37] VITALS: BMI 24.6
[2022-09-19] VITALS (11 sets, daily range): BP systolic 119–154; BP diastolic 73–96; PULSE 67–94; RESP 15–18; TEMP 36.7–43; O2SAT 95–100
--- NOTE | 2022-09-19 07:02 | EXP.ANES.CKL ---
[facility] Disclaimer: The information contained in this section may have been updated after the patient was seen, as this information can be updated by other users. Medical History Anxiety History of COVID-19 Surgical History No significant past surgical history Family History (Updated 09/19/22 @ 06:17 by Maame Crooks RN) Other Family history of cancer Family history of diabetes mellitus type II Social History (Updated 09/19/22 @ 06:21 by Maame Crooks RN) Smoking Status: Current some day smoker tobacco type: cigarettes packs per day: 1 pack-years: 6 second hand exposure: Yes alcohol intake: current substance use type: denies use current occupational status: employed Travel in the last 8 weeks: None household members: significant other housing: house lives independently: Yes marital status: single education level: high school service: No group home: No current occupational exposures/hazards: No sexually active: Yes caffeine: Yes do you feel safe at home: Yes victim of physical abuse: No victim of emotional abuse: No victim of sexual abuse: No would you like helpful sources: No [facility] Anesthesia Checklist Patient Identification Patient Identification: Arm Band and Family Structural Data Admitted From: Home Planned Operative Procedure/s: lap Becky Consent for Planned Operative Procedure(s) Verified: Yes Verified Documents: Surgical Consent and History and Physical NPO Status Verified Time NPO: 00:00 Additional verifications Patient : No Anesthesia Reactions: No Hx Blood Transfusions: No Blood Transfusion Reaction: No Cephalosporin Allergy: No Previous Colonoscopy: No Airway Assessment C-Spine Mobility Assessed: Yes TMJ Mobility Assessed: Yes Dentition: Good Dentition Neurological Assessment Level of Consciousness: Awake, Alert, Appropriate and Follows Commands Hx Seizures: No Numbness or tingling in extremities: No Anesthesia Plan Anesthesia Risk discussed: Yes ASA Class: I Anesthesia Type: General Preoperative Comments Pre-Operative Comments: Woke up Crazy after wisdom teeth removal. Takes muscle relaxants for back pain.
--- NOTE | 2022-09-19 08:22 | EXP.OP.NOTE ---
Date of procedure: 09/19/22 Pre-op Diagnosis:: Gallbladder disease Post-op Diagnosis:: Same Procedure performed:: Laparoscopic cholecystectomy Surgeon:: Nathan Johnson MD HOME ECONOMIST [employer]ER SERVICE:: Avery Ward Anesthesia: JOSHUA Estimated blood loss (mL): 25 Clinical Note:: Patient is a 22-year-old male from [place] referred from the emergency department for gallstones. He had presented to the emergency department on 08/29/2022 after he awoke from sleep with generalized acute abdominal pain. This was worse however in the epigastrium and right upper quadrant. He describes abdominal tightness. Evaluation in the emergency department revealed unremarkable laboratory studies. CT scan was performed which revealed gallstones with mild gallbladder wall thickening. He had an ultrasound performed which revealed findings of mild nonspecific gallbladder wall thickening, normal common bile duct, possible polyp versus cholesterolosis. He was sent for surgical consultation. He was seen in the office on 09/01/2022. I discussed the options with the patient. He would like to pursue surgery. Plan will be for laparoscopic possibly open cholecystectomy. I explained him the nature and details of the proposed procedure along with associated risks and expected outcome. He understands and agrees to proceed. Subsequently patient has had additional attacks consistent with biliary colic. Operative findings:: He had a somewhat thickened gallbladder. The gallbladder neck tapered gradually to the cystic duct. There was some mild fatty infiltration of the liver. Operative note:: Patient was taken to the operating room. He was positioned in supine position. General anesthesia was induced via endotracheal tube. Abdomen was prepped and draped in the standard surgical fashion. Subumbilical skin incision was made and while performing abdominal wall lift Veress needle was inserted. CO2 pneumoperitoneum was achieved to 15 mmHg. 11 mm optical trocar was inserted at the umbilicus. He was positioned in reverse Trendelenburg and left side down. A couple of 5 mm trocars were inserted in the right upper abdomen. 11 mm trocar was inserted in the epigastrium. Gallbladder was grasped retracted anteriorly and superiorly over the dome of the liver. Infundibulum/Matos's pouch of the gallbladder was retracted anterior laterally. Blunt dissection was carried out at the neck of the gallbladder. Visceral peritoneum was incised. There was a vein branching to the patient's right of the cystic duct which was cauterized with a's ultrasonic harmonic karlee. Dissection was carried out clearly identifying the cystic duct and cystic artery in the critical view of safety. The neck of the gallbladder tapered to the cystic duct. Cystic duct was isolated, multiply clipped, and sharply divided. Cystic artery was carefully coagulated with JAYDEN ultrasonic harmonic karlee and divided. Gallbladder was dissected free from the liver in a retrograde fashion using JAYDEN ultrasonic harmonic karlee. It was placed within an Endo Catch retrieval device and removed the peritoneal cavity via the umbilical trocar site. Gallbladder fossa was inspected for hemostasis which was assured. Limited irrigation was performed. Trocars were then removed as CO2 pneumoperitoneum was evacuated. Fascia at the umbilicus was closed with a couple of 0 Vicryl sutures. 0 Vicryl suture was placed in the anterior fascia at the epigastric site. Local anesthetic was infiltrated. Skin incisions were closed with 4-0 Monocryl in a subcuticular fashion. Dermabond and dressings were applied. Condition: stable Disposition: PACU Complications:: None immediately apparent
--- NOTE | 2022-09-19 08:33 | P.PNANES_ITS ---
[facility] Anesthesia Record Part I Anesthesia Record I Intake, IV Amount: 1,200 Estimated blood loss (mL): 10 Urine output (mL): 0 Blood Products used (#): none Blood Pressure: 153/95 SaO2: 95 Pulse Rate: 70 Respiratory Rate: 16 Temperature: 99.6 F Patient is:: Drowsy and Stable Stable to PACU at:: 08:30
--- NOTE | 2022-09-19 14:01 | EXP.ANES.II ---
[facility] Anesthesia Record Part II Anesthesia Record Part II Discharge Time: 09:00 Destination: Surgical Day Care (OP Surgery) PACU nurse assessment reviewed?: Yes Patient Condition:: Good Anesthesia Complications:: None Swallowing reflex intact?: Yes Cyanosis?: No Blood Pressure: 138/94 Pulse Rate: 77 Temperature: 98.7 F Mental Status: Alert & Oriented Pain level:: 6 Nausea and/or vomitting:: None Intake, IV Amount: 0
== END 2022-09-19 09:35 | disposition home or self-care (01) ==
PROVIDERS: Visit Provider Surgery
PROC: 0FT44ZZ Resection of Gallbladder, Percutaneous Endoscopic Approach (ICD-10-PCS; CPT 47562; principal; 2022-09-19 07:30)
DX: K81.1 Chronic cholecystitis (principal)
CPT/HCPCS: 47562; 96374; J2405

== ENCOUNTER 2022-12-06 13:15 | Emergency (ER) | payer BC, SELFPAY ==
--- NOTE | 2022-12-06 13:11 | ECG_ITS ---
APPROVED REPORT Exam: Resting ECG HR:68 bpm ECG Measurements Heart Rate 68 AXES OR 150 P 33 QRSd 92 QRS 79 QT 377 T 25 QTc 394 Conclusion SINUS RHYTHM POSSIBLE RIGHT VENTRICULAR CONDUCTION DELAY [RSR (QR) IN V1/V2] BORDERLINE ECG UNCONFIRMED REPORT Electronically signed by : Lucius Glynn MD 12/06/2022 19:55:52
[2022-12-06 13:15] VITALS: BP 150/92; PULSE 65; RESP 18; TEMP 36.9; O2SAT 100; BMI 25.0
[2022-12-06 13:30] VITALS: BP 128/78; PULSE 67; O2SAT 100
--- NOTE | 2022-12-06 13:51 | XR_ITS ---
FINAL REPORT CLINICAL HISTORY: dyspnea COMPARISON: September 2017 FINDINGS: The heart size is normal. The mediastinum is within normal limits. There is no acute cardiopulmonary process. There is no pleural effusion. There is no pneumothorax. The bony thorax is intact. IMPRESSION: No acute cardiopulmonary process. Reviewed, Interpreted and Dictated by Malik Paige MD Transcribed by Santana Swenson Authenticated and [facility]
--- NOTE | 2022-12-06 13:52 | HMH.EDGENADL ---
Discharge Plan Disposition Patient Disposition: Home, Self-Care Referrals Follow up/Referrals: Provider,Referral, [Primary Care Provider] - See instructions Activity Restrictions/Add. Instructions Additional Instructions/Restrictions: No evidence of an emergent medical condition return with any worsening or ongoing symptoms. You may follow-up with primary care doctor as needed. Clinical Impressions Clinical Impression: Atypical chest pain Discharge ED Provider: Pedro Boogie General Adult HPI General Chief complaint: Chest Pain Stated complaint: chest pain Time Seen by Provider: 12/06/22 13:38 Mode of Arrival: Ambulatory Source of Information: Patient Limitations: No Limitations Description of Symptoms (Recalled from ER Triage Doc. by RN): c/o left arm numbness that progress into both arms with chest pain, soa and blurry vision for one week. History of Present Illness HPI narrative: Patient is a 22-year-old male with a history of heart murmur diagnosed at the age of 5 and as well as anxiety presenting today with chest pain and left arm paresthesias. Currently has no symptoms. States has been intermittently happening over the last several days and has been having ongoing chest discomfort since Monday. This is nonexertional not associated with dyspnea he states that he has some left arm paresthesias associated with this no significant weakness or changes in motor functioning. Denies any dyspnea. Denies any fevers chills or cough. States that he has severe anxiety since the age of 5 since he was diagnosed with his heart murmur and just wanted to make sure that his heart was okay today. Related Data Allergies Allergy/AdvReac Type Severity Reaction Status Date / Time No Known Allergies Allergy Verified 10/18/22 09:32 [facility] Disclaimer: The information contained in this section may have been updated after the patient was seen, as this information can be updated by other users. Medical History (Updated 12/06/22 @ 13:54 by Pedro Boogie MD) Anxiety History of COVID-19 Surgical History (Updated 10/18/22 @ 09:32 by LUCINA Desai) History of laparoscopic cholecystectomy Family History Other Family history of cancer Family history of diabetes mellitus type II Social History Smoking Status: Never smoker second hand exposure: Yes alcohol intake: current substance use type: denies use current occupational status: employed Travel in the last 8 weeks: None household members: significant other housing: house lives independently: Yes marital status: single education level: high school service: No correction: No current occupational exposures/hazards: No sexually active: Yes caffeine: Yes do you feel safe at home: Yes victim of physical abuse: No victim of emotional abuse: No victim of sexual abuse: No would you like helpful sources: No ROS Obtained: Yes All systems reviewed & no additional complaints except as documented Physical Exam General General appearance: alert and in no apparent distress Respiratory Respiratory exam: Present normal lung sounds bilaterally; Absent respiratory distress or wheezes Cardiovascular Cardiovascular exam: Present regular rate and other (Left upper extremity 2+ radial and ulnar pulses); Absent normal rhythm or irregular rhythm Abdominal Exam Abdominal exam: Present soft; Absent distention or tenderness Neurological Exam Neurological exam: Present alert, oriented X3, CN II-XII intact and normal gait; Absent motor sensory deficit (Left upper extremity median ulnar radial and axillary nerve sensation and motor exam normal) Medical Decision Making Nba Inquiry Pt receiving controlled substance: No Vital Signs: 12/06/22 13:15 Temperature 98.4 F Temperature Source Oral
[2022-12-06 14:00] VITALS: BP 134/74; PULSE 64; O2SAT 98
[2022-12-06 14:18] LABS: Troponin I < 0.01 ng/ml (0.00-0.034)
[2022-12-06 14:30] VITALS: BP 128/81; PULSE 62; O2SAT 99
[2022-12-06 14:42] VITALS: BP 128/81; PULSE 61; RESP 18; TEMP 36.9; O2SAT 99
== END 2022-12-06 14:43 | disposition home or self-care (01) ==
PROVIDERS: Emergency Provider Student in an Organized Health Care Education/Training Program
DX: R07.89 Other chest pain (principal); R06.02 Shortness of breath; H53.8 Other visual disturbances; R20.0 Anesthesia of skin; R01.1 Cardiac murmur, unspecified; F41.9 Anxiety disorder, unspecified
CPT/HCPCS: 71045; 84484; 93005; 96374; 99284

== ENCOUNTER 2023-06-01 21:07 | Outpatient (CLI) | payer BC, SELFPAY ==
[2023-06-01 18:26] LABS: Basophils % 0.6 % (0.1-2.0); Eosinophils # 0.1 K/mm3 (0.0-0.4); Eosinophils % 1.1 % (0.1-12.0); Hematocrit 47.2 % (42.0-52.0); Hemoglobin 15.2 g/dL (14.1-18.0); Lymphocytes # 1.8 K/mm3 (0.7-4.5); Lymphocytes % 28.8 % (10-50); Mean Corpuscular HGB Conc 32.2 g/dL (31.8-35.4); Mean Corpuscular Hemoglobin 30.5 pg (27.0-31.2); Mean Corpuscular Volume 94.7 fl (80-94); Monocytes # 0.5 K/mm3 (0.1-1.0); Monocytes % 7.9 % (1.7-9.3); Neutrophils # 3.9 K/mm3 (1.8-7.8); Neutrophils % 61.6 % (37.0-80.0); Platelet Count 312 K/mm3 (142-424); Red Blood Count 4.99 M/mm3 (4.60-6.20); Red Cell Distribution Width 12.7 % (11.5-17.5); White Blood Count 6.4 K/mm3 (4.8-10.8)
[2023-06-01 18:52] LABS: Alanine Aminotransferase 42 U/L (12-78); Albumin Level 5.1 g/dl (3.5-5.0); Albumin/Globulin Ratio 1.7 (1.1-1.8); Alkaline Phosphatase 142 U/L (38-126); Anion Gap 14.9 mEq/L (5-15); Aspartate Amino Transferase 39 U/L (17-59); Bilirubin,Total 0.6 mg/dl (0.2-1.3); Blood Urea Nitrogen 19 mg/dl (9-20); Calcium 9.9 mg/dl (8.4-10.2); Carbon Dioxide 29 mmol/L (22.0-30.0); Chloride 103 mmol/L (98-107); Chol/HDL Ratio 7.8 (1-3.5); Cholesterol 204 mg/dl (140-200); Estimated Glomerular Filt Rate 103 ml/min (>60); GFR (African American) 124 ML/MIN (>60); Glucose 86 mg/dl (74-100); HDL Cholesterol 26 mg/dl (40-60); Potassium 4.9 mmoL/L (3.5-5.1); Sodium 142 mmol/L (136-145); Total Protein,Serum 8.1 g/dl (6.3-8.2); Triglycerides 177 mg/dl (30-150); VLDL Cholesterol 35 mg/dL (0-40)
[2023-06-01 19:04] LABS: Direct LDL Cholesterol 122.59 mg/dL (100-129)
[2023-06-01 19:11] LABS: 25-OH Vitamin D, Total 39.8 ng/mL (30-100)
[2023-06-01 19:13] LABS: Free T4 (Free Thyroxine) 1.02 ng/dl (0.78-2.19)
[2023-06-01 19:18] LABS: Hemoglobin A1C 5.3 % (4.0-6.0)
[2023-06-01 19:28] LABS: Thyroid Stimulating Hormone 2.77 uIU/mL (0.465-4.68)
[2023-06-01 19:49] LABS: Vitamin B12 279 pg/mL (239-931)
== END 2023-06-01 23:59 ==
LOC: LAB.DROPOF 21:08
PROVIDERS: PCP Nurse Practitioner Family; Visit Provider Nurse Practitioner Family
DX: R00.2 Palpitations (principal); R07.89 Other chest pain; F41.9 Anxiety disorder, unspecified; R53.83 Other fatigue; E78.1 Pure hyperglyceridemia; E78.00 Pure hypercholesterolemia, unspecified; Z79.899 Other long term (current) drug therapy
CPT/HCPCS: 80053; 80061; 82306; 82607; 83036; 84439; 84443; 85025

== ENCOUNTER 2023-06-14 13:03 | Outpatient (CLI) | payer BC, SELFPAY ==
--- NOTE | 2023-06-14 13:03 | CA_ITS ---
APPROVED REPORT EXAM: Comprehensive 2D, Doppler, and color-flow Echocardiogram Completion Supervisor: Erlinda Jensen RT(R) Ht: 6 ft 2 in Wt: 207lbs BSA: 2.21 BP: 122/78 mmHg Indications: cp, palpitations, smoker, fatigue, SOB, anxiety disorder 2D Dimensions LVEF (Lopez's) 61.20 % M: 52 - 72 LV Volume 101.40 mL M: 62 - 150 LV Volume Index 45.9 mL/m2 M: 34 - 74 EF AP4 64.80 % EF AP2 56.2 % EF BP 61.2 % GL Strain -18.2 % M-Mode Dimensions RVDd 1.87 cm (0.9-2.6) LA Diam 2.99 cm (1.9-4.0) LVDd 5.15 cm (3.5-5.7) LVDs 3.61 cm (3.5-5.7) IVSd 0.84 cm (0.6-1.1) PWd 0.80 cm (0.6-1.1) EF (Teich) 56.70% FS 29.90% EDV (Teich) 126.60 mL ESV (Teich) 54.80 mL LV Diastology E Decel Time 313 (160-240 msec) E/A Ratio 2.01 Mitral Valve MV A Velocity 34.0 (40-130 cm/s) E/A Ratio 2.01 Left Ventricle The left ventricle is normal size. The left ventricular systolic function is normal. The left ventricular ejection fraction is within the normal range. There is normal left ventricular wall thickness. There is normal LV segmental wall motion. LVEF is 55%. Right Ventricle The right ventricle is normal size. The right ventricular systolic function is normal. Atria The left atrium size is normal. The right atrium size is normal. There is no Doppler evidence of interatrial shunt. Aortic Valve The aortic valve opens well. There is no aortic valvular stenosis. No aortic regurgitation is present. Mitral Valve The mitral valve is normal in structure. No evidence of mitral valve stenosis. Trace mitral regurgitation. Tricuspid Valve The tricuspid valve leaflets are thin and pliable. Trace tricuspid regurgitation. RVSP is normal. Pulmonic Valve The pulmonary valve is normal in structure. Trace pulmonic regurgitation. Great Vessels The aortic root is normal in size. The ascending aorta is normal in size. IVC is normal in size and collapses >50% with inspiration. Pericardium There is no pericardial effusion. Other Information Study Quality: Fair Conclusion Normal biventricular systolic function. No significant valvular stenosis or regurgitation. Electronically signed by : Dang Greene MD 06/18/2023 18:18:20
== END 2023-06-14 23:59 ==
LOC: RT 13:03
PROVIDERS: Visit Provider Nurse Practitioner Family
DX: R00.2 Palpitations (principal); R07.89 Other chest pain
CPT/HCPCS: 93270; 93306

== ENCOUNTER 2023-09-05 15:08 | Emergency (ER) | payer BC, SELFPAY ==
[2023-09-05 15:20] VITALS: BP 135/81; PULSE 69; RESP 20; TEMP 36.9; O2SAT 98; BMI 25.7
--- NOTE | 2023-09-05 15:57 | ED_ITS ---
Discharge Plan Disposition Patient Disposition: Home, Self-Care Condition: Good Prescriptions Prescriptions: New ibuprofen 800 mg tablet 800 mg PO Q8H PRN (Reason: pain) Qty: 30 0RF methylprednisolone [Medrol (Jr)] 4 mg tablets,dose pack See Rx Instructions .ROUTE .COMPLEX 6 Days Qty: 21 0RF Rx Instructions: 4 mg orally ;Medrol dose taper jr Referrals Follow up/Referrals: Provider,Referral, MD [Primary Care Provider] - See instructions Activity Restrictions/Add. Instructions Additional Instructions/Restrictions: If symptoms persist or worsen follow up with primary care provider. Rest elbow as much as possible and wear brace, especially while working. Take medication as prescribed. Clinical Impressions Clinical Impression: Tendinopathy of left elbow Instructions Patient Instructions: DI for Lateral Epicondylitis (Tennis Elbow) Discharge ED Provider: Miranda Mares [facility] General Stated complaint: LT elbow pain Mode of Arrival: Ambulatory Source of Information: Patient Limitations: No Limitations Time Seen by Provider: 09/05/23 15:41 Description of Symptoms (Recalled from Triage Doc. by RN): PATIENT C/O LEFT ELBOW PAIN ON AND OFF X 2 DAYS. 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 Related Data Previous Rx's Medication Instructions Recorded ibuprofen 800 mg tablet 800 mg PO Q8H PRN pain #30 tabs 09/05/23 methylprednisolone 4 mg tablets in See Rx Instructions .Route 09/05/23 a dose pack (Medrol (Jr)) .COMPLEX 6 days #21 tabs Allergies Allergy/AdvReac Type Severity Reaction Status Date / Time No Known Allergies Allergy Verified 06/01/23 15:21 Worker's Comp Is this a Worker's Comp case?: No [facility] Disclaimer: The information contained in this section may have been updated after the patient was seen, as this information can be updated by other users. Medical History (Updated 09/05/23 @ 16:22 by Miranda Mares APRN) History of tobacco abuse History of cardiovascular stress test Cholelithiasis Abdominal pain Sore throat Strep throat Pharyngitis Sinusitis Pneumonia Low back pain Encounter for removal of sutures Facial laceration Elbow sprain Abscess Cellulitis History of COVID-19 Anxiety Surgical History (Updated 06/02/23 @ 13:32 by Tracy Sotelo APRN) History of laparoscopic cholecystectomy Family History Other Family history of cancer Family history of diabetes mellitus type II Social History (Updated 06/02/23 @ 13:34 by Tracy Sotelo APRN) Smoking Status: Current some day smoker tobacco type: cigarettes packs per day: 1 and e-cigarettes quit status: considering quitting second hand exposure: Yes alcohol intake: current alcohol intake frequency: a few times a week substance use type: denies use current occupational status: employed Travel in the last 8 weeks: None household members: significant other housing: house lives independently: Yes marital status: single education level: high school service: No halfway: No 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 current occupational exposures/hazards: No sexually active: Yes caffeine: Yes do you feel safe at home: Yes victim of physical abuse: No victim of emotional abuse: No victim of sexual abuse: No would you like helpful sources: No ROS Obtained: Yes All systems reviewed & no additional complaints except as documented Constitutional Constitutional: Reports system reviewed and no additional complaints, except as documented Eyes Eyes: Reports system reviewed and no additional complaints, except as documented ENT Ears, Nose, Mouth, and Throat: Reports system reviewed and no additional compla ints, except as documented Cardiovascular Cardiovascular: Reports system reviewed and no additional complaints, except as documented Respiratory Respiratory: Reports system reviewed and no additional complaints, except as documented Gastrointestinal Gastrointestingal: Reports system reviewed and no additional complaints, except as documented Genitourinary Male Genitourinary: Reports system reviewed and no additional complaints, except as documented Musculoskeletal Musculoskeletal: Reports system reviewed and no additional complaints, except as documented, Reports arthralgias and Reports myalgias Integumentary/Breasts Skin/Breast: Reports system reviewed and no additional complaints, except as documented Neurologic Neurologic: Reports system reviewed and no additional complaints, except as documented Endocrine Endocrine: Reports system reviewed and no additional complaints, except as documented Hematologic/Lymphatic Henatologic/Lymphatic: Reports system reviewed and no additional complaints, except as documented Allergic/Immunologic Allergic/Immunologic: Reports system reviewed and no additional complaints, except as documented Physical Exam General General appearance: alert and in no apparent distress Head Head exam: atraumatic and normocephalic Eye Eye exam: Present normal appearance ENT ENT exam: Present normal exam and normal oropharynx Neck Neck exam: Present normal inspection Chest Chest inspection: Present normal inspection and symmetric chest wall rise Respiratory Respiratory exam: Present normal lung sounds bilaterally Cardiovascular Cardiovascular exam: Present regular rate, normal rhythm and normal heart sounds Abdominal Exam Abdominal exam: Present soft and normal bowel sounds Expanded Upper Extremity Exam Left: Shoulder exam: Present normal inspection Arm exam: Present normal inspection Elbow exam: Present tenderness, pain w/ pronation/supination and tenderness over radial head Forearm/Wrist exam: Present normal inspection Hand exam: Present normal inspection Neuromotor exam: Normal wrist extension Vascular exam: Normal capillary refill, radial pulse and ulnar pulse Back Exam Back exam: Present normal inspection Neurological Exam Neurological exam: Present alert and oriented X3 Psychiatric Psychiatric exam: Present normal affect and normal mood Skin Skin exam: Present warm, dry and intact Lymphatic Lymphatic Findings: no adenopathy Medical Decision Making Nba Inquiry Pt receiving controlled substance: No Nba was queried for this patient: No Vital Signs: 09/05/23 15:20 Temperature 98.4 F Temperature Source Oral Pulse Rate [Right Brachial] 69 Respiratory Rate 20 Blood Pressure [Right Arm] 135/81 Blood Pressure Mean [Right Arm] 99 Blood Pressure Source [Right Arm] Automatic Cuff Blood Pressure Position [Right Arm] Sitting 02 Sat by Pulse Oximetry 98 Oxygen Delivery Method Room Air
[2023-09-05 16:23] VITALS: BP 135/81; PULSE 69; RESP 20; TEMP 36.9; O2SAT 98
== END 2023-09-05 16:26 | disposition home or self-care (01) ==
PROVIDERS: Emergency Provider Nurse Practitioner Family
DX: M67.922 Unspecified disorder of synovium and tendon, left upper arm (principal); M25.522 Pain in left elbow; F17.210 Nicotine dependence, cigarettes, uncomplicated
CPT/HCPCS: 99212; 99214; G0463

== ENCOUNTER 2023-09-07 15:34 | Emergency (ER) | payer BC, SELFPAY ==
[2023-09-07 15:35] VITALS: BP 130/91; PULSE 76; RESP 18; TEMP 36.7; O2SAT 98; BMI 25.8
--- NOTE | 2023-09-07 15:35 | PC.NURSE ---
LACERATION CLEANED WITH HIBICLENSE AND STERILE WATER AT THIS TIME
[2023-09-07] MEDS: TET/DIPHTH/PERT-ADULT 0.5ML SYRINGE 0.5 ML IM (15:52)
--- NOTE | 2023-09-07 16:00 | ED_ITS ---
Discharge Plan Disposition Patient Disposition: Home, Self-Care Condition: Good Prescriptions Prescriptions: No Action ibuprofen 800 mg tablet 800 mg PO Q8H PRN (Reason: pain) Qty: 30 0RF methylprednisolone [Medrol (Jr)] 4 mg tablets,dose pack See Rx Instructions .ROUTE .COMPLEX 6 Days Qty: 21 0RF Rx Instructions: 4 mg orally ;Medrol dose taper jr Referrals Follow up/Referrals: Provider,Referral, MD [Primary Care Provider] - See instructions Activity Restrictions/Add. Instructions Additional Instructions/Restrictions: Keep the wound clean and dry. You can start to wash your hair in 24 hours. When you do wash it, make sure you are gentle around the wounded area. Watch the wound for signs of infection, such as redness, swelling, drainage, fever. etc. Take tylenol or ibuprofen for pain. Follow up with your regular doctor. Return in 7 days to have the kinza removed. GO TO THE ER FOR ANY WORSENING SYMPTOMS OR CONCERNS. Clinical Impressions Clinical Impression: Laceration of scalp, Need for Tdap vaccination Instructions Patient Instructions: DI for Laceration Repair, DI for Laceration Repair -- Kinza, Tetanus, Diphtheria, Pertussis (Tdap) Vaccine Discharge ED Provider: Christopher Olsen [facility] General Stated complaint: [id number] lac to head Mode of Arrival: Ambulatory Source of Information: Patient Limitations: No Limitations Time Seen by Provider: 09/07/23 16:00 Description of Symptoms (Recalled from Triage Doc. 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 PATIENT DENIES LOC. SMALL KNOT WITH LACERATION NOTED TO RIGHT SIDE OF SCALP. PATIENT DOES NOT KNOW WHEN LAST TDAP WAS HEENT Symptoms (Recalled from RN notes): Yes Resp Symptoms (Recalled from RN notes): No Skin Symptoms (Recalled from RN notes): Yes MS Symptoms (Recalled from RN notes): No Functional Status (Recalled from RN notes): WNL History of Present Illness Provider Complaint: He states that he was working on a tractor when he bumped his head on a piece of metal. He has a laceration on his scalp. His tetanus immunization is not up to date. Related Data Previous Rx's Medication Instructions Recorded ibuprofen 800 mg tablet 800 mg PO Q8H PRN pain #30 tabs 09/05/23 methylprednisolone 4 mg tablets in See Rx Instructions .Route 09/05/23 a dose pack (Medrol (Jr)) .COMPLEX 6 days #21 tabs Allergies Allergy/AdvReac Type Severity Reaction Status Date / Time No Known Allergies Allergy Verified 06/01/23 15:21 Worker's Comp Is this a Worker's Comp case?: No [facility] Disclaimer: The information contained in this section may have been updated after the patient was seen, as this information can be updated by other users. Medical History (Updated 09/07/23 @ 16:45 by Christopher Olsen APRN) History of tobacco abuse History of cardiovascular stress test Cholelithiasis Abdominal pain Sore throat Strep throat Pharyngitis Sinusitis Pneumonia Low back pain Encounter for removal of sutures Facial laceration Elbow sprain Abscess Cellulitis History of COVID-19 Anxiety Surgical History (Updated 06/02/23 @ 13:32 by Tracy Sotelo APRN) History of laparoscopic cholecystectomy Family History Other Family history of cancer Family history of diabetes mellitus type II Social History (Updated 06/02/23 @ 13:34 by Tracy Sotelo APRN) Smoking Status: Current some day smoker tobacco type: cigarettes packs per day: 1 and e-cigarettes quit status: considering quitting second hand exposure: Yes alcohol intake: current alcohol intake frequency: a few times a week substance use type: denies use current occupational status: employed Travel in the last 8 weeks: None household members: significant other housing: house lives independently: Yes marital status: single education level: high school service: No correction: No 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 current occupational exposures/hazards: No sexually active: Yes caffeine: Yes do you feel safe at home: Yes victim of physical abuse: No victim of emotional abuse: No victim of sexual abuse: No would you like helpful sources: No ROS Obtained: Yes All systems reviewed & no additional complaints except as documented Constitutional Constitutional: Denies chills, Denies fever(s) and Denies headache(s) Eyes Eyes: Denies eye discharge ENT Ears, Nose, Mouth, and Throat: Denies dizziness, Denies otalgia, Denies headache(s) and Denies sore throat Cardiovascular Cardiovascular: Denies chest pain Respiratory Respiratory: Denies shortness of breath, Denies chest congestion, Denies cough, Denies stridor and Denies wheezing Gastrointestinal Gastrointestingal: Denies nausea or vomiting Musculoskeletal Musculoskeletal: Reports system reviewed and no additional complaints, except as documented and Denies arthralgias Integumentary/Breasts Skin/Breast: Reports as per HPI Neurologic Neurologic: Reports as per HPI, Denies dizziness, Denies headache(s) and Denies paresthesias Allergic/Immunologic Allergic/Immunologic: Denies wheezing Physical Exam General General appearance: alert and in no apparent distress Head Head exam: atraumatic, normocephalic and normal inspection Eye Eye exam: Present normal appearance, PERRL and EOMI ENT ENT exam: Present normal exam, normal oropharynx, mucous membranes moist, TM's normal bilaterally and normal external ear exam Neck Neck exam: Present normal inspection, full ROM and trachea midline; Absent menin gismus or lymphadenopathy Chest Chest inspection: Present normal inspection and symmetric chest wall rise; Absent tenderness Respiratory Respiratory exam: Present normal lung sounds bilaterally; Absent respiratory distress Cardiovascular Cardiovascular exam: Present regular rate and normal rhythm; Absent JVD Abdominal Exam Abdominal exam: Present soft and normal bowel sounds; Absent distention, tender ness or guarding Extremities Exam Extremities exam: Present normal inspection, full ROM and normal capillary refill; Absent calf tenderness Back Exam Back exam: Present normal inspection; Absent tenderness Neurological Exam Neurological exam: Present alert and oriented X3 Psychiatric Psychiatric exam: Present normal affect and normal mood Skin Skin exam: Present other (there is a 0.5 cm linear laceration on the right side of his scalp. no deep tissue damage, no foreign body noted. ) Lymphatic Lymphatic Findings: no adenopathy Medical Decision Making Medical Records Medical records reviewed: No I reviewed the patient's medical records. Nba Inquiry Pt receiving controlled substance: No Vital Signs: 09/07/23 15:35 Temperature 98.0 F Temperature Source Oral Pulse Rate [Left Brachial] 76 Respiratory Rate 18 Blood Pressure [Left Arm] 130/91 H Blood Pressure Mean [Left Arm] 104 Blood Pressure Source [Left Arm] Automatic Cuff Blood Pressure Position [Left Arm] Sitting 02 Sat by Pulse Oximetry 98 Oxygen Delivery Method Room Air Orders (Tests/Meds): ED MEDICATIONS Discontinued Medications Generic Name Dose Route Start Last Admin Trade Name Freq PRN Reason Stop Dose Admin Tetanus/Reduced Diphtheria/Acell Pertussis 0.5 ml 09/07/23 15:47 09/07/23 15:52 Tet/Diphth/Pert-Adult 0.5ml Syringe IM 09/07/23 15:48 0.5 ml .ONCE ONE Administration Procedures Risk/Benefits of Procedure(s) Were Explained: Yes Laceration Laceration 1: Site: scalp Size (cm): 0.5 Description: linear Depth: simple, single layer Local Anesthetic: lidocaine 1% Amount of anesthesia used (mL): 1 Pre-repair: wound explored, irrigated extensively and deep structures intact Skin layer closed with: other (kinza) Number of sutures: 2 Technique: simple, interrupted (he tolerated placing the kinza well, good closure was obtained, the edges were approximated well. )
[2023-09-07] MEDS: LIDOCAINE 1% PF 2ML AMPULE 1 ML SQ (16:20)
[2023-09-07 16:44] VITALS: BP 130/91; PULSE 76; RESP 18; TEMP 36.7; O2SAT 98
== END 2023-09-07 16:51 | disposition home or self-care (01) ==
PROVIDERS: Emergency Provider Nurse Practitioner Family
DX: S01.01XA Laceration without foreign body of scalp, initial encounter (principal); W26.8XXA Contact with other sharp object(s), not elsewhere classified, initial encounter; Z23 Encounter for immunization
CPT/HCPCS: 12001; 90471; 90715; 99213; 99214; G0463

== ENCOUNTER 2023-09-14 16:14 | Emergency (ER) | payer BC, SELFPAY ==
[2023-09-14 16:20] VITALS: BP 111/74; PULSE 65; RESP 19; O2SAT 98; BMI 26.3
[2023-09-14 16:25] VITALS: BP 111/74; PULSE 65; RESP 19; TEMP 36.7; O2SAT 98
== END 2023-09-14 16:27 | disposition home or self-care (01) ==
PROVIDERS: Emergency Provider Nurse Practitioner Family
DX: Z48.02 Encounter for removal of sutures (principal)

== ENCOUNTER 2023-10-04 13:27 | Emergency (ER) | payer OTHER, SELFPAY ==
--- NOTE | 2023-10-04 13:39 | XR_ITS ---
FINAL REPORT CLINICAL HISTORY: cough, R/O PNA COMPARISON: 10/15/2017 FINDINGS: PA and lateral views of the chest were obtained. The cardiac and mediastinal silhouettes are within normal limits. The lungs are clear. There is no pleural effusion or pneumothorax. No acute osseous abnormality is identified. IMPRESSION: No radiographic evidence of acute cardiac or pulmonary disease. Reviewed, Interpreted and Dictated by Kala Rucker MD Transcribed by Mecca Vazquez Authenticated and [facility]
[2023-10-04 13:40] VITALS: BP 122/82; PULSE 66; RESP 20; TEMP 36.9; O2SAT 99; BMI 25.9
--- NOTE | 2023-10-04 13:51 | ED_ITS ---
Discharge Plan Disposition Patient Disposition: Home, Self-Care Condition: Good Prescriptions Prescriptions: New methylprednisolone 4 mg Tablets,Dose Pack 4 mg PO DIRECTED 6 Days Qty: 21 0RF Rx Instructions: Take 1 pack as directed for 6 days ovmgfcwptlxcbov-qvfdrhkdq-[id number] [Bromfed DM] 2-30-10 mg/5 mL Syrup 5 ml PO Q6H PRN (Reason: Cough) Qty: 240 0RF amoxicillin-pot clavulanate 875-125 mg Tablet 1 tab PO Q12H Qty: 20 0RF Referrals Follow up/Referrals: Provider,Referral, MD [Primary Care Provider] - See instructions Activity Restrictions/Add. Instructions Additional Instructions/Restrictions: Drink plenty of fluids. Take tylenol or ibuprofen for pain or fever. Take the medications as directed. Follow up with your regular doctor. GO TO THE ER FOR ANY WORSENING SYMPTOMS Clinical Impressions Clinical Impression: Acute bronchitis, Sinusitis Stand Alone Forms Stand Alone Forms: Work/School Release Instructions Patient Instructions: Sinusitis, DI for Sinusitis Discharge ED Provider: Christopher Olsen [facility] General Stated complaint: head congestion sore throat Mode of Arrival: Ambulatory Source of Information: Patient Limitations: No Limitations Time Seen by Provider: 10/04/23 13:51 Description of Symptoms (Recalled from Triage Doc. by RN): PATIENT C/O CHEST CONGESTION, DRY COUGH, NASAL CONGESTION AND SOA X 1.5 WEEKS HEENT Symptoms (Recalled from RN notes): Yes Resp Symptoms (Recalled from RN notes): Yes Skin Symptoms (Recalled from RN notes): No MS Symptoms (Recalled from RN notes): No Functional Status (Recalled from RN notes): WNL History of Present Illness Provider Complaint: He states that for the past 1 week he has had worsening chest congestion, productive cough, and sinus congestion. Related Data Previous Rx's Medication Instructions Recorded amoxicillin 875 mg-potassium 1 tab PO Q12H #20 tabs 10/04/23 clavulanate 125 mg tablet teovlxlthvsqwsx-hdayqafpkgmqnbe-LX 5 ml PO Q6H PRN Cough #240 mL 10/04/23 2 mg-30 mg-10 mg/5 mL oral syrup (Bromfed DM) methylprednisolone 4 mg tablets in 4 mg PO DIRECTED 6 days #21 tabs 10/04/23 a dose pack Allergies Allergy/AdvReac Type Severity Reaction Status Date / Time No Known Allergies Allergy Verified 06/01/23 15:21 Worker's Comp Is this a Worker's Comp case?: No [facility] Disclaimer: The information contained in this section may have been updated after the patient was seen, as this information can be updated by other users. Medical History (Updated 10/04/23 @ 14:32 by Christopher Olsen APRN) History of tobacco abuse History of cardiovascular stress test Cholelithiasis Abdominal pain Sore throat Strep throat Pharyngitis Sinusitis Pneumonia Low back pain Encounter for removal of sutures Facial laceration Elbow sprain Abscess Cellulitis History of COVID-19 Anxiety Surgical History (Updated 06/02/23 @ 13:32 by Tracy Sotelo APRN) History of laparoscopic cholecystectomy Family History Other Family history of cancer Family history of diabetes mellitus type II Social History (Updated 06/02/23 @ 13:34 by Tracy Sotelo APRN) Smoking Status: Current some day smoker tobacco type: cigarettes packs per day: 1 and e-cigarettes quit status: considering quitting second hand exposure: Yes alcohol intake: current alcohol intake frequency: a few times a week substance use type: denies use current occupational status: employed Travel in the last 8 weeks: None household members: significant other housing: house lives independently: Yes marital status: single education level: high school service: No half-way: No 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 current occupational exposures/hazards: No sexually active: Yes caffeine: Yes do you feel safe at home: Yes victim of physical abuse: No victim of emotional abuse: No victim of sexual abuse: No would you like helpful sources: No ROS Obtained: Yes All systems reviewed & no additional complaints except as documented Constitutional Constitutional: Reports poor appetite Eyes Eyes: Reports system reviewed and no additional complaints, except as documented ENT Ears, Nose, Mouth, and Throat: Reports as per HPI Cardiovascular Cardiovascular: Reports system reviewed and no additional complaints, except as documented and Denies chest pain Respiratory Respiratory: Denies shortness of breath, Reports chest congestion, Reports cough, Denies stridor and Denies wheezing Gastrointestinal Gastrointestingal: Reports system reviewed and no additional complaints, except as documented; Denies abdominal pain, diarrhea or vomiting Musculoskeletal Musculoskeletal: Reports system reviewed and no additional complaints, except as documented and Denies arthralgias Integumentary/Breasts Skin/Breast: Reports system reviewed and no additional complaints, except as documented and Denies rash Neurologic Neurologic: Denies paresthesias Allergic/Immunologic Allergic/Immunologic: Denies wheezing Physical Exam General General appearance: alert and in no apparent distress Eye Eye exam: Present normal appearance, PERRL and EOMI ENT ENT exam: Present mucous membranes moist and normal external ear exam Expanded ENT Exam External ear exam: Present normal external inspection TM/Canal exam: Bilateral TM: erythema and bulging Nose exam: Absent sinus tenderness Nasal speculum exam: Bilateral: normal Mouth exam: Present normal external inspection; Absent drooling Teeth exam: Present normal inspection Throat exam: Present tonsillar erythema and tonsillomegaly Neck Neck exam: Present normal inspection, full ROM and trachea midline; Absent tenderness, lymphadenopathy or thyromegaly Chest Chest inspection: Present normal inspection and symmetric chest wall rise; Absent tenderness or rash Respiratory Respiratory exam: Present normal lung sounds bilaterally; Absent respiratory distress, wheezes, stridor or accessory muscle use Cardiovascular Cardiovascular exam: Present regular rate, normal rhythm and normal heart sounds Abdominal Exam Abdominal exam: Present soft; Absent distention, tenderness, guarding, rebound or rigidity Extremities Exam Extremities exam: Present normal inspection, full ROM and normal capillary refill; Absent tenderness or calf tenderness Back Exam Back exam: Present normal inspection and full ROM; Absent tenderness Neurological Exam Neurological exam: Present alert and oriented X3 Psychiatric Psychiatric exam: Present normal affect and normal mood Skin Skin exam: Present warm, dry, intact and normal color Lymphatic Lymphatic Findings: no adenopathy Medical Decision Making Medical Records Medical records reviewed: No I reviewed the patient's medical records. Nba Inquiry Pt receiving controlled substance: No Vital Signs: 10/04/23 13:40 Temperature 98.5 F Temperature Source Oral Pulse Rate [Left Brachial] 66 Respiratory Rate 20 Blood Pressure [Left Arm] 122/82 Blood Pressure Mean [Left Arm] 95 Blood Pressure Source [Left Arm] Automatic Cuff Blood Pressure Position [Left Arm] Sitting 02 Sat by Pulse Oximetry 99 Oxygen Delivery Method Room Air Orders (Tests/Meds): ORDERS Category Date Time Status Chest XR 2 view (NOT portable) [XR chest 2V] Stat Exams 10/04/23 13:39 Ordered Radiology Data #1: Image(s): Chest Image Reviewed: Yes I reviewed the patient's radiology image and Yes I have reviewed radiologist's interpretation Preliminary Findings: Normal/NAD and No Infiltrates Seen Accession No. 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 The cardiac and mediastinal silhouettes are within normal limits. The lungs are clear. There is no pleural effusion or pneumothorax. No acute osseous abnormality is identified. IMPRESSION: No radiographic evidence of acute cardiac or pulmonary disease. Reviewed, Interpreted and Dictated by Kala Dockery MD Transcribed by Mecca Vazquez Authenticated and [facility]
[2023-10-04 14:30] VITALS: BP 122/82; PULSE 66; RESP 20; TEMP 36.9; O2SAT 99
== END 2023-10-04 14:35 | disposition home or self-care (01) ==
PROVIDERS: Emergency Provider Nurse Practitioner Family
DX: J20.9 Acute bronchitis, unspecified (principal); J01.90 Acute sinusitis, unspecified; R05.9 Cough, unspecified; R09.81 Nasal congestion
CPT/HCPCS: 71046; 99212; 99214; G0463

== ENCOUNTER 2023-10-16 08:00 | Emergency (ER) | payer OTHER, SELFPAY ==
[2023-10-16 08:10] VITALS: BP 130/88; PULSE 59; RESP 20; TEMP 36.7; O2SAT 98; BMI 25.9
--- NOTE | 2023-10-16 08:18 | EXP.UTC ---
Discharge Plan Disposition Patient Disposition: Home, Self-Care Condition: Good Prescriptions Prescriptions: New guaifenesin [Mucinex] 600 mg tablet extended release 12hr 1,200 mg PO BID PRN (Reason: cough) Qty: 20 0RF fluticasone propionate [Flonase Allergy Relief] 50 mcg/actuation spray,suspension 1 - 2 spray intranasal DAILY Qty: 16 0RF Rx Instructions: administer into each nostril Referrals Follow up/Referrals: Provider,Referral, MD [Primary Care Provider] - See instructions Activity Restrictions/Add. Instructions Additional Instructions/Restrictions: *Monitor Temp, Over the counter Motrin or Tylenol as directed/as needed Tylenol every 4 hours and Motrin every 6 hours (as long as your family doctor has told you that you can take it) for fever or pain. and straight to ER if unable to lower temp less than 101.0 after medication given *Warm salt water gargles may help to soothe the throat *Throat Lozenges? *Warm fluids like tea with honey may help to soothe the throat? *Sleep elevated *Humidifier/Vaporizer Your throat swab was sent for culture. Those results are typically sent to your primary care. Be sure to follow up in 2-3 days with your family doctor/primary care physician if no improvement so they can review those result and treat if necessary. If you don?t have a primary care doctor, I recommend you get one but in the mean time, you will have to return to a walk in clinic Follow up IMMEDIATELY for new or worsening symptoms or no Noticeable improvement over the next 48-72 hours. 911 for difficulty breathing or swallowing Clinical Impressions Clinical Impression: Sore throat (viral) Instructions Patient Instructions: Sore Throat Print Language Print Language: Wolof Discharge ED Provider: Litzy Bar [facility] [place] HPI General Stated complaint: sore throat cough Time Seen by Provider: 10/16/23 08:18 History of Present Illness Provider Complaint: Patient states that he was seen and treated about a week ago for Bronchitis States that he has since finished the medication and his chest congestion is much better but still having a lingering cough, states yesterday his throat started to hurt and burn when he swallows States he was worried he may have strep throat so he came in to get checked Related Data Previous Rx's ?Medication ?Instructions ?Recorded fluticasone propionate 50 1 - 2 spray intranasal DAILY #16 10/16/23 mcg/actuation nasal grams spray,suspension (Flonase Allergy Relief) guaifenesin 600 mg tablet, 1,200 mg (2 x 600 mg) PO BID PRN 10/16/23 extended release 12 hr (Mucinex) cough #20 tabs Allergies Allergy/AdvReac Type Severity Reaction Status Date / Time No Known Allergies Allergy Verified 06/01/23 15:21 [facility] Disclaimer: The information contained in this section may have been updated after the patient was seen, as this information can be updated by other users. Medical History (Updated 10/16/23 @ 08:52 by Litzy Bar APRN) History of tobacco abuse History of cardiovascular stress test Cholelithiasis Abdominal pain Sore throat Strep throat Pharyngitis Sinusitis Pneumonia Low back pain Encounter for removal of sutures Facial laceration Elbow sprain Abscess Cellulitis History of COVID-19 Anxiety Surgical History (Updated 06/02/23 @ 13:32 by Tracy Sotelo APRN) History of laparoscopic cholecystectomy Family History Other Family history of cancer Family history of diabetes mellitus type II Social History (Updated 06/02/23 @ 13:34 by Tracy Sotelo APRN) Smoking Status: Current some day smoker tobacco type: cigarettes packs per day: 1 and e-cigarettes quit status: considering quitting second hand exposure: Yes alcohol intake: current alcohol intake frequency: a few times a week substance use type: denies use current occupational status: employed Travel in the last 8 weeks: None household members: significant other housing: house lives independently: Yes marital status: single education level: high school service: No correction: No 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 current occupational exposures/hazards: No sexually active: Yes caffeine: Yes do you feel safe at home: Yes victim of physical abuse: No victim of emotional abuse: No victim of sexual abuse: No would you like helpful sources: No ROS Obtained: Yes All systems reviewed & no additional complaints except as documented and Yes Systems reviewed as appropriate & no additional complaints except as documented Constitutional Constitutional: Reports system reviewed and no additional complaints, except as documented and Reports as per HPI ENT Ears, Nose, Mouth, and Throat: Reports system reviewed and no additional complaints, except as documented, Reports as per HPI and Reports sore throat Cardiovascular Cardiovascular: Reports system reviewed and no additional complaints, except as documented and Reports as per HPI Respiratory Respiratory: Reports system reviewed and no additional complaints, except as documented, Reports as per HPI and Reports cough Gastrointestinal Gastrointestingal: Reports system reviewed and no additional complaints, except as documented and as per HPI Physical Exam General General appearance: alert and in no apparent distress ENT ENT exam: Present mucous membranes moist Expanded ENT Exam Nose exam: Absent sinus tenderness Throat exam: Present tonsillar erythema Respiratory Respiratory exam: Present normal lung sounds bilaterally; Absent respiratory distress or wheezes Cardiovascular Cardiovascular exam: Present regular rate, normal rhythm and normal heart sounds Neurological Exam Neurological exam: Present alert, oriented X3 and normal gait Medical Decision Making Nba Inquiry Pt receiving controlled substance: No Nba was queried for this patient: No Lab Data Lab results reviewed: Yes I reviewed the patient's lab results.
[2023-10-16 08:32] LABS: UTC Strep Screen (Rapid) Negative (Negative)
[2023-10-16 08:53] VITALS: BP 130/88; PULSE 59; RESP 20; TEMP 36.7; O2SAT 98
== END 2023-10-16 08:56 | disposition home or self-care (01) ==
PROVIDERS: Emergency Provider Nurse Practitioner
DX: J02.8 Acute pharyngitis due to other specified organisms (principal); R05.9 Cough, unspecified
CPT/HCPCS: 87880; 99212; 99214; G0463

== ENCOUNTER 2024-01-05 09:06 | Emergency (ER) | payer OTHER, SELFPAY ==
[2024-01-05 09:08] VITALS: BP 159/115; PULSE 82; RESP 18; TEMP 36.7; O2SAT 100; BMI 26.3
--- NOTE | 2024-01-05 09:15 | HMH.EDGENADL ---
Discharge Plan Disposition Patient Disposition: Home, Self-Care Condition: Good Prescriptions Prescriptions: New ketorolac 10 mg tablet 10 mg PO Q8H PRN (Reason: pain) 5 Days Qty: 14 0RF tamsulosin 0.4 mg capsule 0.4 mg PO HS 14 Days Qty: 14 0RF No Action guaifenesin [Mucinex] 600 mg tablet extended release 12hr 1,200 mg PO BID PRN (Reason: cough) Qty: 20 0RF fluticasone propionate [Flonase Allergy Relief] 50 mcg/actuation spray,suspension 1 - 2 spray intranasal DAILY Qty: 16 0RF Rx Instructions: administer into each nostril Referrals Follow up/Referrals: Provider,Referral, MD [Primary Care Provider] - See instructions Activity Restrictions/Add. Instructions Additional Instructions/Restrictions: As we discussed, you have a small kidney stone that is likely the culprit of your symptoms that is small enough that is highly likely to pass on its own. I have prescribed a pain medication and another medication that can help pass kidney stones. Please use the strainer and follow-up with your primary care doctor. Please return with any new or worsening symptoms Clinical Impressions Clinical Impression: Urolithiasis Instructions Patient Instructions: Kidney Stones -- Adult, DI for Urinary Tract Infection (UTI), DI for Urinary Tract Infection in Children Print Language Print Language: Luxembourger Discharge ED Provider: Bradley Lopez Adult HPI General Chief complaint: Urogenital-Male Stated complaint: urination pain and back pain Time Seen by Provider: 01/05/24 09:15 History of Present Illness HPI narrative: He presents with a chief complaint of sudden onset pain in the lower abdomen, testicles, and lower back on the right side. The pain began upon waking up this morning and has persisted throughout the day. He reports difficulty urinating and experiencing pain during urination, describing it as if someone is squeezing his testicles while he tries to urinate. He denies any similar symptoms in the past. The pain started when he woke up to urinate, feeling like he hadn't urinated in a while. After using the bathroom, the pain persisted and worsened, spreading from his testicles to his lower abdomen and lower back on the right side. He mentions that some medication has alleviated part of the pain. He states he felt fine the previous day and woke up with these symptoms. He denies any pain upon tapping on the back during the physical examination. He reports no personal history of kidney stones but mentions a family history of kidney stones. His urinalysis revealed the presence of blood in the urine. Please note that above description of symptoms, in this electronic medical record under categorization of recalled from ER triage doctor by RN are reflective of an initial nursing assessment, however, is not reflective of my full history and physical exam that was personally taken and clarified. Consequentially, this preceding description of symptoms, which may include the patient's categorized chief complaint in the EMR, do not reflect my personal clinical impression, and the ultimate description of history of present illness and patient stated complaints should be deferred to this section of the note. Unless stated otherwise or congruent with this section of the note, additional signs, symptoms, or incongruence should be interpreted as inaccurate with my clinical impression. Related Data Previous Rx's ?Medication ?Instructions ?Recorded fluticasone propionate 50 1 - 2 spray intranasal DAILY #16 10/16/23 mcg/actuation nasal grams spray,suspension (Flonase Allergy Relief) guaifenesin 600 mg tablet, 1,200 mg (2 x 600 mg) PO BID PRN 10/16/23 extended release 12 hr (Mucinex) cough #20 tabs ketorolac 10 mg tablet 10 mg PO Q8H PRN pain 5 days #14 01/05/24 tabs tamsulosin 0.4 mg capsule 0.4 mg PO HS 14 days #14 caps 01/05/24 Allergies Allergy/AdvReac Type Severity Reaction Status Date / Time No Known Allergies Allergy Verified 06/01/23 15:21 [facility] Disclaimer: The information contained in this section may have been updated after the patient was seen, as this information can be updated by other users. Medical History (Updated 01/05/24 @ 11:24 by Bradley Lopez MD) History of tobacco abuse History of cardiovascular stress test Cholelithiasis Abdominal pain Sore throat Strep throat Pharyngitis Sinusitis Pneumonia Low back pain Encounter for removal of sutures Facial laceration Elbow sprain Abscess Cellulitis History of COVID-19 Anxiety Surgical History (Updated 06/02/23 @ 13:32 by Tracy Sotelo APRN) History of laparoscopic cholecystectomy Family History Other Family history of cancer Family history of diabetes mellitus type II Social History (Updated 06/02/23 @ 13:34 by Tracy Sotelo APRN) Smoking Status: Former smoker tobacco type: cigarettes packs per day: 1 and e-cigarettes quit status: considering quitting second hand exposure: Yes alcohol intake: current alcohol intake frequency: a few times a week substance use type: denies use current occupational status: employed Travel in the last 8 weeks: None household members: significant other housing: house lives independently: Yes marital status: single education level: high school service: No residential: No 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 current occupational exposures/hazards: No sexually active: Yes caffeine: Yes do you feel safe at home: Yes victim of physical abuse: No victim of emotional abuse: No victim of sexual abuse: No would you like helpful sources: No Other Medical History Have you received the Pneumonia Vaccine: No ROS Obtained: Yes other As per HPI Physical Exam General General appearance: alert and in no apparent distress Head Head exam: atraumatic and normocephalic Eye Eye exam: Present normal appearance Neck Neck exam: Present normal inspection Chest Chest inspection: Present normal inspection and symmetric chest wall rise Respiratory Respiratory exam: Present normal lung sounds bilaterally; Absent respiratory distress Cardiovascular Cardiovascular exam: Present regular rate and normal rhythm Abdominal Exam Abdominal exam: Present soft Neurological Exam Neurological exam: Present alert and oriented X3 Psychiatric Psychiatric exam: Present normal affect and normal mood Skin Skin exam: Present warm and dry Other Other exam information: Right-sided CVA tenderness to percussion no midline back pain Medical Decision Making Medical Records Medical records reviewed: Yes I reviewed the patient's medical records. Screening: Per USPSTF and CDC recommendations, given the prevalence of disease in our region, it is our hospital?s policy to screen for HIV and viral Hepatitis for all patients aged 18 and over and those with ongoing risk factors. Nba Inquiry Pt receiving controlled substance: No Vital Signs: 01/05/24 09:08 01/05/24 09:24 01/05/24 09:27 Temperature 98.0 F Temperature Source Oral Pulse Rate 90 89 Pulse Rate [Radial] 82 Respiratory Rate 18 Blood Pressure 159/115 H 137/95 H Blood Pressure [Right Arm] 159/115 H Blood Pressure Mean Blood Pressure Mean [Right Arm] 129 Blood Pressure Source Blood Pressure Source [Right Arm] Automatic Cuff Blood Pressure Position Blood Pressure Position [Right Arm] Sitting 02 Sat by Pulse Oximetry 100 100 100 Oxygen Delivery Method Room Air Room Air Room Air 01/05/24 10:45 01/05/24 11:00 01/05/24 11:27 Temperature 97.9 F Temperature Source Oral Pulse Rate 60 Pulse Rate [Radial] Respiratory Rate 18 Blood Pressure 129/84 128/83 128/83 Blood Pressure [Right Arm] Blood Pressure Mean 99 94 Blood Pressure Mean [Right Arm] Blood Pressure Source Automatic Cuff Blood Pressure Source [Right Arm] Blood Pressure Position Sitting Blood Pressure Position [Right Arm] 02 Sat by Pulse Oximetry Oxygen Delivery Method Room Air Lab Data Lab Results 01/05/24 09:15: Urine Color Yellow, Urine Appearance Clear, Urine pH 6.5, Ur Specific [employer] 1.025, Urine Protein Negative, Urine Glucose (UA) Negative, Urine Ketones Negative, Urine Blood 3+ A, Urine Nitrate Negative, Urine Bilirubin Negative, Urine Urobilinogen 0.2, Ur Leukocyte Esterase Negative, Urine RBC 10-20, Urine WBC Occasional, Ur Squamous Epith Cells Occasional, Urine Bacteria Trace 01/05/24 09:25: WBC 5.7, RBC 4.91, Hgb 15.3, Hct 43.3, MCV 88.3, MCH 31.2, MCHC 35.3, RDW 13.2, Plt Count 291, MPV 7.0 L, Neut % (Auto) 57.3, Lymph % (Auto) 29.8, [place] % (Auto) 10.2 H, Eos % (Auto) 1.9, Baso % (Auto) 0.8, Neut # (Auto) 3.2, Lymph # (Auto) 1.7, [place] # (Auto) 0.6, Eos # (Auto) 0.1, Baso # (Auto) 0.1, Sodium 141, Potassium 3.9, Chloride 105, Carbon Dioxide 26, Anion Gap 13.9, BUN 15, Creatinine 1.00, Estimated Creat Clear 149, Estimated GFR 91, Est GFR ( Amer) 110, Glucose 110 H, Calcium 9.9, Total Bilirubin 0.9, AST 35, ALT 41, Alkaline Phosphatase 134 H, Total Protein 7.9, Albumin 4.7, Globulin 3.2, Albumin/Globulin Ratio 1.5, Hepatitis C Antibody Non reactive, HIV 1&2 Antibody Rapid Nonreactive 01/05/24 09:25 10/18/24 09:25 Orders (Tests/Meds): ED MEDICATIONS Discontinued Medications Generic Name Dose Route Start Last Admin Trade Name Freq PRN Reason Stop Dose Admin Ketorolac Tromethamine 15 mg 01/05/24 09:20 01/05/24 09:30 Ketorolac 30mg/Ml Vial IV 01/05/24 09:21 15 mg ONCE ONE Administration Ketorolac Tromethamine 15 mg 01/05/24 10:52 01/05/24 10:55 Ketorolac 30mg/Ml Vial IV 01/05/24 10:53 15 mg ONCE ONE Administration Ondansetron HCl 4 mg 01/05/24 09:20 01/05/24 09:30 Ondansetron 4mg/2ml Vial IV 01/05/24 09:21 4 mg ONCE ONE Administration Sodium Chloride 10 ml 01/05/24 09:46 Sodium Chloride 0.9% 10ml Flush Syringe IV 02/04/24 09:45 NEEDED PRN Maintain IV Site ORDERS Category Date Time Status CT abdomen pelvis wo con Stat Cat Scan 01/05/24 09:48 Completed CBC w/Auto Diff [Complete Blood Count Auto Diff] Stat Lab 01/05/24 09:25 Completed CMP [Comprehensive Metabolic Panel] Stat Lab 01/05/24 09:25 Completed HIV (1&2) Antibody Rapid Stat Lab 01/05/24 09:25 Completed Hep C Ab with Reflex to RNA Stat Lab 01/05/24 09:25 Completed Urinalysis and Microscopic Stat Lab 01/05/24 09:15 Completed Urine Culture Stat Micro 01/05/24 09:15 Received Medical Decision Narrative: Patient with history and exam per above presenting for evaluation of flank pain, groin pain Diagnoses considered include urolithiasis, hydronephrosis, cystitis, pyelonephritis, among others ED workup and treatment included: ED MEDICATIONS Discontinued Medications Generic Name Dose Route Start Last Admin Trade Name Freq PRN Reason Stop Dose Admin Ketorolac Tromethamine 15 mg 01/05/24 09:20 01/05/24 09:30 Ketorolac 30mg/Ml Vial IV 01/05/24 09:21 15 mg ONCE ONE Administration Ketorolac Tromethamine 15 mg 01/05/24 10:52 01/05/24 10:55 Ketorolac 30mg/Ml Vial IV 01/05/24 10:53 15 mg ONCE ONE Administration Ondansetron HCl 4 mg 01/05/24 09:20 01/05/24 09:30 Ondansetron 4mg/2ml Vial IV 01/05/24 09:21 4 mg ONCE ONE Administration Sodium Chloride 10 ml 01/05/24 09:46 Sodium Chloride 0.9% 10ml Flush Syringe IV 02/04/24 09:45 NEEDED PRN Maintain IV Site ORDERS Category Date Time Status CT abdomen pelvis wo con Stat Cat Scan 01/05/24 09:48 Completed CBC w/Auto Diff [Complete Blood Count Auto Diff] Stat Lab 01/05/24 09:25 Completed CMP [Comprehensive Metabolic Panel] Stat Lab 01/05/24 09:25 Completed HIV (1&2) Antibody Rapid Stat Lab 01/05/24 09:25 Completed Hep C Ab with Reflex to RNA Stat Lab 01/05/24 09:25 Received Urinalysis and Microscopic Stat Lab 01/05/24 09:15 Completed Urine Culture Stat Micro 01/05/24 09:15 Received Labs were independently interpreted by me, significant for no acute findings Imaging was independently visualized and interpreted by me, significant for 2 mm distal stone in right UVJ Please refer to radiology report for full details. My clinical impression at this time is most consistent with symptomatic urolithiasis I discussed my clinical impression with patient and answered all questions. At this time, the evidence for any other entities in the differential is insufficient to warrant any further testing or ED observation. This was explained to the patient. The patient was advised that persistent or worsening symptoms require further evaluation. Critical Care Critical Care Time Critical Care Time: No
[2024-01-05 09:24] VITALS: BP 159/115; PULSE 90; O2SAT 100
[2024-01-05 09:24] LABS: Microscopic, Urine URINE MICROSCOPIC (MICROSCOPIC)
[2024-01-05 09:27] VITALS: BP 137/95; PULSE 89; O2SAT 100
[2024-01-05 09:28] LABS: Appearance,Urine CLEAR (Clear); Bilirubin,Urine Negative (Negative); Blood, Urine 3+ (Negative); Color,Urine YELLOW (Yellow); Glucose,Urine (UA) Negative (Negative); Ketones,Urine Negative (Negative); Leukocyte Esterase,Urine Negative (Negative); Nitrate,Urine Negative (Negative); PH,Urine 6.5 (5.0-8.5); Protein,Urine Negative (Negative); Specific Gravity, Urine 1.025 (1.005-1.030); Urobilinogen,Urine 0.2 EU/dl (0.2)
[2024-01-05 09:30] LABS: Bacteria,Urine Trace /lpf; Squamous Epithelial Cell,Urine Occasional #/hpf (0-5); WBC,Urine Occasional #/hpf (0-3)
[2024-01-05] MEDS: ONDANSETRON 4MG/2ML VIAL 4 MG IV (09:30)
[2024-01-05] MEDS: KETOROLAC 30MG/ML VIAL 15 MG IV ×2 (09:30→10:55)
[2024-01-05 09:37] LABS: Basophils # 0.1 K/mm3 (0-0.2); Basophils % 0.8 % (0.1-2.0); Eosinophils # 0.1 K/mm3 (0.0-0.4); Eosinophils % 1.9 % (0.1-12.0); Hematocrit 43.3 % (42.0-52.0); Hemoglobin 15.3 g/dL (14.1-18.0); Lymphocytes # 1.7 K/mm3 (0.7-4.5); Lymphocytes % 29.8 % (10-50); Mean Corpuscular HGB Conc 35.3 g/dL (31.8-35.4); Mean Corpuscular Hemoglobin 31.2 pg (27.0-31.2); Mean Corpuscular Volume 88.3 fl (80-94); Monocytes # 0.6 K/mm3 (0.1-1.0); Monocytes % 10.2 % (1.7-9.3); Neutrophils # 3.2 K/mm3 (1.8-7.8); Neutrophils % 57.3 % (37.0-80.0); Platelet Count 291 K/mm3 (142-424); Red Blood Count 4.91 M/mm3 (4.60-6.20); Red Cell Distribution Width 13.2 % (11.5-17.5); White Blood Count 5.7 K/mm3 (4.8-10.8)
--- NOTE | 2024-01-05 09:48 | CT_ITS ---
PROCEDURE INFORMATION: Exam: CT Abdomen And Pelvis Without Contrast Exam date and time: 01/05/2024 9:55 AM Age: 23 years old Clinical indication: Abdominal pain; Additional info: R flank pain, testicle pain, hematuria. Pain started this morning TECHNIQUE: Imaging protocol: Computed tomography of the abdomen and pelvis without contrast. Radiation optimization: All CT scans at this facility use at least one of these dose optimization techniques: automated exposure control; mA and/or kV adjustment per patient size (includes targeted exams where dose is matched to clinical indication); or iterative reconstruction. COMPARISON: CT ABDOMEN PELVIS W CON 08/29/2022 7:19 AM FINDINGS: Liver: Normal. No mass. Gallbladder and biliary ducts: Cholecystectomy. Pancreas: Normal. No ductal dilation. Spleen: Normal. No splenomegaly. Adrenal glands: Normal. No mass. Kidneys and ureters: Tiny nonobstructing right renal calculus. Mild right hydronephrosis secondary to a 2 mm calculus at the right ureterovesical junction. Stomach and bowel: Unremarkable. No obstruction. No mucosal thickening. Appendix: No evidence of appendicitis. Intraperitoneal space: Unremarkable. No free air. No significant fluid collection. Vasculature: Unremarkable. No abdominal aortic aneurysm. Lymph nodes: Unremarkable. No enlarged lymph nodes. Urinary bladder: Unremarkable as visualized. Reproductive: Unremarkable as visualized. Bones/joints: Unremarkable. No acute fracture. Soft tissues: Unremarkable. IMPRESSION: Mild right hydronephrosis secondary to a 2 mm calculus at the right ureterovesical junction.
[2024-01-05 09:51] LABS: Albumin Level 4.7 g/dl (3.5-5.0); Chloride 105 mmol/L (98-107)
[2024-01-05 09:52] LABS: Potassium 3.9 mmoL/L (3.5-5.1); Sodium 141 mmol/L (136-145)
[2024-01-05 09:54] LABS: Alanine Aminotransferase 41 U/L (12-78); Anion Gap 13.9 mEq/L (5-15); Aspartate Amino Transferase 35 U/L (17-59); Blood Urea Nitrogen 15 mg/dl (9-20); Carbon Dioxide 26 mmol/L (22.0-30.0); Creatinine Clearance Estimated 149 mL/min (50-200); Estimated Glomerular Filt Rate 91 ml/min (>60); GFR (African American) 110 ML/MIN (>60)
[2024-01-05 09:55] LABS: Albumin/Globulin Ratio 1.5 (1.1-1.8); Alkaline Phosphatase 134 U/L (38-126); Bilirubin,Total 0.9 mg/dl (0.2-1.3); Calcium 9.9 mg/dl (8.4-10.2); Globulin 3.2 g/dL (1.3-3.2); Glucose 110 mg/dl (74-100); Total Protein,Serum 7.9 g/dl (6.3-8.2)
--- NOTE | 2024-01-05 10:42 | PC.NURSE ---
ROUNDED ON PT HE STATED PAIN WAS STARTING TO COME BACK AND ASKED FOR A WATER. PT WAS GIVEN A WATER AND I LET PT KNOW I WOULD NOTIFY MD AND NURSES ABOUT PAIN AND SEE IF WE COULD GET HIM SOMETHING ELSE FOR PAIN
[2024-01-05 10:43] LABS: HIV (1&2) Antibody Rapid NONREACTIVE (NONREACTIVE)
--- NOTE | 2024-01-05 10:43 | PC.NURSE ---
ER BENEFITS ADVISOR SINDHU,SUPERVISOR PAPER TESTING ORTEGA AND ALSO CHARGE NURSE KARL NOTIFIED ABOUT PTS PAIN RETURNING
[2024-01-05 10:45] VITALS: BP 129/84
[2024-01-05 11:00] VITALS: BP 128/83
--- NOTE | 2024-01-05 11:12 | PC.NURSE ---
DR FRANK AT BEDSIDE TO UPDATE PT
[2024-01-05 11:27] VITALS: BP 128/83; PULSE 60; RESP 18; TEMP 36.6; O2SAT 100
[2024-01-06 08:28] LABS: HCV Ab Non Reactive (Non Reactive)
== END 2024-01-05 11:29 | disposition home or self-care (01) ==
PROVIDERS: Emergency Provider Emergency Medicine
DX: N20.9 Urinary calculus, unspecified (principal); R10.9 Unspecified abdominal pain; M54.50 Low back pain, unspecified; N50.819 Testicular pain, unspecified; R39.198 Other difficulties with micturition; R30.0 Dysuria
CPT/HCPCS: 74176; 80053; 81001; 85025; 86803; 87086; 87389; 96374; 96375; 99284; C1776; J1885; J2405

== ENCOUNTER 2024-05-01 08:25 | Outpatient (CLI) | payer OTHER, SELFPAY ==
--- NOTE | 2024-05-01 08:27 | US_ITS ---
FINAL REPORT TECHNIQUE: Sonographic images of the right upper quadrant were obtained. CLINICAL HISTORY: RUQ abd pain, elevated alk phos COMPARISON: None FINDINGS: PANCREAS: Mostly obscured by overlying bowel gas.. LIVER: Homogeneous. No focal hepatic lesion. No intrahepatic biliary ductal dilatation. GALLBLADDER: The gallbladder has been surgically resected. . COMMON DUCT: 5.5 mm. Normal for age. RIGHT KIDNEY: The right kidney measures 10.9 cm. There is no hydronephrosis, mass, or stone. FREE FLUID: None. IMPRESSION: Unremarkable ultrasound of the right upper quadrant. Reviewed, Interpreted and Dictated by Kala Rucker MD Transcribed by Kitty Menard Authenticated and [facility]
== END 2024-05-01 23:59 | disposition home or self-care (01) ==
LOC: RAD 08:25
PROVIDERS: Visit Provider Nurse Practitioner Family
DX: R10.11 Right upper quadrant pain (principal); R74.8 Abnormal levels of other serum enzymes
CPT/HCPCS: 76705

== ENCOUNTER 2025-01-10 18:48 | Emergency (ER) | payer OTHER, SELFPAY ==
[2025-01-10 19:03] VITALS: BP 173/90; PULSE 94; RESP 18; TEMP 36.8; O2SAT 99; BMI 27.6
--- NOTE | 2025-01-10 19:08 | XR_ITS ---
PROCEDURE INFORMATION: Exam: XR Left Hand Exam date and time: 01/10/2025 7:06 PM Age: 24 years old Clinical indication: Injury or trauma; Other: Punched toolbox; Additional info: Left hand injury TECHNIQUE: Imaging protocol: Radiologic exam of the left hand. Views: 3 or more views. COMPARISON: CR Wrist L 01/10/2025 7:03 PM FINDINGS: Bones/joints: Comminuted displaced fracture of the neck of the 5th metacarpal. Soft tissues: Soft tissue swelling of the hand. IMPRESSION: Comminuted displaced fracture of the neck of the 5th metacarpal.
--- NOTE | 2025-01-10 19:08 | XR_ITS ---
PROCEDURE INFORMATION: Exam: XR Left Wrist Exam date and time: 01/10/2025 7:03 PM Age: 24 years old Clinical indication: Injury or trauma; Other: Punched toolbox; Crushing; Wrist; Left; Additional info: Left hand injury TECHNIQUE: Imaging protocol: Radiologic exam of the left wrist. Views: 3 or more views. COMPARISON: CR XR WRIST LT MIN 3V 01/10/2025 7:03 PM FINDINGS: Bones/joints: Comminuted displaced fracture of in the neck of the 5th metacarpal. Soft tissues: Soft tissue swelling of the hand IMPRESSION: Comminuted displaced fracture of in the neck of the 5th metacarpal.
--- NOTE | 2025-01-10 19:45 | HMH.EDGENADL ---
Discharge Plan Disposition Patient Disposition: Home, Self-Care Prescriptions Prescriptions: No Action colestipol 1 gram tablet 1 g PO BID Qty: 60 2RF Referrals Follow up/Referrals: Ray Godinez DO [Staff Physician, Orthopedics] - See instructions Provider,Referral, [Primary Care Provider, Medical] - See instructions Activity Restrictions/Add. Instructions Additional Instructions/Restrictions: Keep splint clean dry and intact. Do not remove the splint. Ice and elevate hand. Call Dr. Godinez on Monday for follow-up appointment for permanent splint or cast. Return to the ED if any worsening pain or problems arise. Clinical Impressions Clinical Impression: Closed boxer's fracture Instructions Patient Instructions: Boxer's Fracture Print Language Print Language: Maltese Discharge ED Provider: Claudette Palomares Adult HPI General Chief complaint: Extremity Injury, Upper Stated complaint: Possible Broken L hand Time Seen by Provider: 01/10/25 19:34 Mode of Arrival: Ambulatory Source of Information: Patient Description of Symptoms (Recalled from ER Triage Doc. by RN): Pt presents for evaluation of left hand injury after punching a toolbox History of Present Illness HPI narrative: 24-year-old male presents today for complaint of left hand pain after punching a toolbox prior to arrival. He does have obvious swelling to his left hand. He does have good movement of his hand and wrist. Related Data Previous Rx's ?Medication ?Instructions ?Recorded colestipol 1 gram tablet 1 g PO BID #60 tabs 04/24/24 Allergies Allergy/AdvReac Type Severity Reaction Status Date / Time No Known Allergies Allergy Verified 04/24/24 14:52 [facility] Disclaimer: The information contained in this section may have been updated after the patient was seen, as this information can be updated by other users. Medical History Abdominal pain Abscess Anxiety Diagnosed at age 12 Cellulitis Cholelithiasis Elbow sprain Encounter for removal of sutures Facial laceration History of cardiovascular stress test Age 12, WNL History of COVID-19 History of tobacco abuse Stopped in 2020, was a 1ppd x 5 years Low back pain Pharyngitis Pneumonia Sinusitis Sore throat Strep throat Surgical History History of laparoscopic cholecystectomy 2022 Family History Other Family history of cancer Family history of diabetes mellitus type II Social History (Updated 04/24/24 @ 14:55 by Seema Maria CMA) Smoking Status: Current every day smoker tobacco type: cigarettes packs per day: 1 pack-years: 5 and e-cigarettes quit status: considering quitting second hand exposure: Yes alcohol intake: current alcohol intake frequency: a few times a week substance use type: denies use current occupational status: employed and unemployed Travel in the last 8 weeks?: None household members: significant other housing: house lives independently: Yes marital status: single education level: high school service: No long-term: No 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 current occupational exposures/hazards: No sexually active: Yes caffeine: Yes do you feel safe at home: Yes victim of physical abuse: No victim of emotional abuse: No victim of sexual abuse: No would you like helpful sources: No Have you lived/traveled outside [place] in past 30 days?: No Contact w/someone who lives/traveled outside US past 30 days?: No Exposure to someone with infectious disease in past 14 days?: No Do you have a fever (greater than 100.4 F or 38 C)?: No Have you tested positive for COVID-19?: No Exposed to someone with COVID-19 in past 14 days?: No Do you have a sore throat?: No Do you have a cough?: No Do you have any weakness?: No Do you have any diarrhea?: No Are you experiencing any unusual bleeding?: No Do you have any muscle aches/pain?: No Do you have any abdominal pain?: No Are you experiencing loss of taste or smell?: No Other Medical History Have you received the Pneumonia Vaccine: No ROS Obtained: Yes Systems reviewed as appropriate & no additional complaints except as documented Constitutional Constitutional: Reports as per HPI Physical Exam General General appearance: alert and in no apparent distress Head Head exam: normocephalic Eye Eye exam: Present PERRL and EOMI Neck Neck exam: Present full ROM Respiratory Respiratory exam: Present normal lung sounds bilaterally Cardiovascular Cardiovascular exam: Present regular rate, +S1 and +S2 Extremities Exam Extremities exam: Present normal inspection and tenderness (Tenderness to the left hand) Neurological Exam Neurological exam: Present alert and oriented X3 Psychiatric Psychiatric exam: Present normal mood Skin Skin exam: Present warm, dry and intact Medical Decision Making Medical Records Screening: Per USPSTF and CDC recommendations, given the prevalence of disease in our region, it is our hospital?s policy to screen for HIV and viral Hepatitis for all patients aged 18 and over and those with ongoing risk factors. Nba Inquiry Pt receiving controlled substance: No Nba was queried for this patient: No Vital Signs: 01/10/25 19:03 Temperature 98.3 F Temperature Source Temporal Artery Scan Pulse Rate [Right] 94 H Respiratory Rate 18 Blood Pressure [Right Arm] 173/90 H Blood Pressure Mean [Right Arm] 117 Blood Pressure Source [Right Arm] Automatic Cuff Blood Pressure Position [Right Arm] Sitting 02 Sat by Pulse Oximetry 99 Oxygen Delivery Method Room Air Orders (Tests/Meds): ORDERS Category Date Time Status Wrist XR left minimum 3 views [XR wrist LT min 3V] Stat Exams 01/10/25 19:08 Completed XR hand LT min 3V Stat Exams 01/10/25 19:08 Completed Medical Decision Narrative: patient is a 24-year-old male presenting to the emergency department for evaluation of left hand pain. Patient hit a toolbox prior to arrival. He has a left boxer's fracture that we will need a ulnar gutter splint. I have already talked to patient about following up with Dr. Gdoinez on Monday. We will place the ulnar gutter splint. He can take Tylenol and ibuprofen for pain and swelling. Elevate ice. Patient will follow-up with Ortho. Ulnar gutter splint made by [facility]rick. Pulses good and neuro intact. Critical Care Critical Care Time Critical Care Time: No
[2025-01-10 20:43] VITALS: BP 173/90; PULSE 94; RESP 18; TEMP 36.8; O2SAT 99
== END 2025-01-10 20:48 | disposition home or self-care (01) ==
PROVIDERS: Emergency Provider Student in an Organized Health Care Education/Training Program
DX: S62.337A Displaced fracture of neck of fifth metacarpal bone, left hand, initial encounter for closed fracture (principal); F17.210 Nicotine dependence, cigarettes, uncomplicated; W22.8XXA Striking against or struck by other objects, initial encounter
CPT/HCPCS: 29125; 73110; 73130; 99284

== ENCOUNTER 2025-01-17 11:17 | Outpatient (CLI) | payer OTHER, SELFPAY | END 2025-01-17 23:59 | disposition home or self-care (01) | LOC: PREOP 11:18 | PROVIDERS: Visit Provider Orthopaedic Surgery | DX: Z01.818 Encounter for other preprocedural examination (principal) ==

== ENCOUNTER 2025-01-21 08:44 | Day surgery (SDC) | payer OTHER, SELFPAY ==
[2025-01-17 08:42] VITALS: BMI 27.6
[2025-01-17 11:43] VITALS: BMI 27.6
[2025-01-17 11:54] LABS: Hematocrit 41.8 % (42.0-52.0); Hemoglobin 14.4 g/dL (14.1-18.0); Mean Corpuscular HGB Conc 34.4 g/dL (31.8-35.4); Mean Corpuscular Hemoglobin 30.4 pg (27.0-31.2); Mean Corpuscular Volume 88.2 fl (80-94); Red Blood Count 4.74 M/mm3 (4.60-6.20); Red Cell Distribution Width-SD 38.0 fL; White Blood Count 4.7 K/mm3 (4.8-10.8)
[2025-01-17 11:55] LABS: Immature Granulocytes % 0.2 %; Nucleated Red Blood Cells % 0 %; Platelet Count 274 K/mm3 (142-424)
[2025-01-17 12:04] LABS: Chloride 101 mmol/L (98-107); Sodium 135 mmol/L (136-145)
[2025-01-17 12:05] LABS: Potassium 4.1 mmoL/L (3.5-5.1)
[2025-01-17 12:07] LABS: Anion Gap 12.1 mEq/L (5-15); Blood Urea Nitrogen 15 mg/dl (9-20); Carbon Dioxide 26 mmol/L (22.0-30.0); Creatinine Clearance Estimated 193 mL/min (50-200); Creatinine,Serum 0.80 mg/dl (0.66-1.25); Estimated Glomerular Filt Rate 117 ml/min (>60); GFR (African American) 141 ML/MIN (>60)
[2025-01-17 12:08] LABS: Calcium 9.2 mg/dl (8.4-10.2); Glucose 97 mg/dl (74-100)
[2025-01-21] VITALS (10 sets, daily range): BP systolic 126–157; BP diastolic 70–105; PULSE 69–88; RESP 16–20; TEMP 36.1–36.6; O2SAT 92–100
--- NOTE | 2025-01-21 | XR_ITS ---
FINAL REPORT TECHNIQUE: Fluoroscopy. CLINICAL HISTORY: HAND XR IN OR FT 41 seconds .75 mGy FINDINGS: Fluoroscopy was provided. 2 images were obtained. There is ORIF of the fifth metacarpal. Fluoroscopic time: 0.6 minutes. DAP: 0.73 mGy IMPRESSION: ORIF of the fifth metacarpal. Reviewed, Interpreted and Dictated by Dipak Marcos MD Transcribed by BRADLEY Lowry Authenticated and [facility]
[2025-01-21] MEDS: LACTATED RINGERS 1000ML 1,000 ML 100 ML IV (09:15)
--- NOTE | 2025-01-21 09:17 | EXP.ANES.CKL ---
[facility] Disclaimer: The information contained in this section may have been updated after the patient was seen, as this information can be updated by other users. Medical History History of tobacco abuse Stopped in 2020, was a 1ppd x 5 years History of cardiovascular stress test Age 12, WNL Cholelithiasis Abdominal pain Sore throat Strep throat Pharyngitis Sinusitis Pneumonia Low back pain Encounter for removal of sutures Facial laceration Elbow sprain Abscess Cellulitis History of COVID-19 Anxiety Diagnosed at age 12 Surgical History History of laparoscopic cholecystectomy 2022 Family History Other Family history of cancer Family history of diabetes mellitus type II Social History Smoking Status: Current every day smoker tobacco type: cigarettes packs per day: 1 pack-years: 5 and e-cigarettes quit status: considering quitting second hand exposure: Yes alcohol intake: current alcohol intake frequency: a few times a week substance use type: denies use current occupational status: employed and unemployed Travel in the last 8 weeks?: None household members: significant other housing: house lives independently: Yes marital status: single education level: high school service: No usp: No 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 current occupational exposures/hazards: No sexually active: Yes caffeine: Yes do you feel safe at home: Yes victim of physical abuse: No victim of emotional abuse: No victim of sexual abuse: No would you like helpful sources: No Have you lived/traveled outside [place] in past 30 days?: No Contact w/someone who lives/traveled outside [place] past 30 days?: No Exposure to someone with infectious disease in past 14 days?: No Do you have a fever (greater than 100.4 F or 38 C)?: No Have you tested positive for COVID-19?: No Exposed to someone with COVID-19 in past 14 days?: No Do you have a sore throat?: No Do you have a cough?: No Do you have any weakness?: No Do you have any diarrhea?: No Are you experiencing any unusual bleeding?: No Do you have any muscle aches/pain?: No Do you have any abdominal pain?: No Are you experiencing loss of taste or smell?: No [facility] Anesthesia Checklist Patient Identification Patient Identification: Arm Band and Verbal (Name & ) Structural Data Admitted From: Home Planned Operative Procedure/s: Left hand 5th metacarpal ORIF Consent for Planned Operative Procedure(s) Verified: Yes Verified Documents: Surgical Consent NPO Status Verified Time NPO: 00:00 Chart Verification Results Verified: None Additional verifications Anesthesia Reactions: No Hx Blood Transfusions: No Blood Transfusion Reaction: No Airway Assessment Mallampati Score:: Class II C-Spine Mobility Assessed: Yes TMJ Mobility Assessed: Yes Dentition: Good Dentition Neurological Assessment Level of Consciousness: Awake, Alert and Appropriate Hx Seizures: No Numbness or tingling in extremities: No Anesthesia Plan Anesthesia Risk discussed: Yes Anesthesia Plan: Verified ASA Class: I Anesthesia Type: General
[2025-01-21] MEDS: BUPIVACAINE 0.5% 30ML VIAL 150 MG (09:46)
--- NOTE | 2025-01-21 10:56 | P.OP_ITS ---
Date of procedure: 01/21/25 Pre-op Diagnosis:: Left fifth metacarpal neck fracture Post-op Diagnosis:: Same Procedure performed:: Open reduction internal fixation left fifth metacarpal neck fracture Surgeon:: Ray Godinez DO Special Warfare Boat Operator(s):: Aaron RAMIREZ SUBSTATION MAINTENANCE TECHNICIAN:: Tera Huber Anesthesia: GETA Estimated blood loss (mL): 0 Operative findings:: See dictation Operative note:: Patient identified preoperatively. The left upper extremity marked with yes and my initials. Transported operative suite placed upon operating bed. General anesthesia administered airway secured. Left upper extremity was then prepped and draped in normal sterile fashion. Once prepped and draped final operative timeout performed to identify proper patient procedure and extremity. Everyone involved in the case agreed. There is no counter indication beginning. Did receive preoperative antibiotics. X-ray was brought into identify the fifth metacarpal neck fracture. Closed reduction maneuver was performed with flexion at the MCP joint and dorsally applied pressure. This was able to reduce the fracture in good alignment. Once the fracture was reduced a marking pen was used to alice planned incision Esmarch was used to exsanguinate the extremity. Pneumatic tourniquet inflated to 250 mmHg. Skin knife was used to incise through skin direct dissection was taken down around the fifth metacarpal head. Careful dissection was taken and Ragnell's were placed to protect the extensor tendon the articular surface exposed reduction confirmed on x-ray. Guidewire was then selected and under fluoroscopic guidance a guidewire was placed through the metacarpal head down the shaft after the reduction was confirmed. Once this reduction was confirmed the drill was utilized and the countersink was utilized and a size 34 headless 3.0 millimeter screw was used good compression of the fracture site was obtained the screw head was placed below the articular surface this was directly visualized and confirmed radiographically. Good alignment of the fracture was obtained. There was good bite within the canal upon placement of the screw. X-rays were taken AP oblique and lateral views. With good reduction of the fracture and stable fixation. Guidewire removed irrigation of the wound performed capsule closed with a 4-0 Vicryl stitch subcutaneous 4-0 Vicryl stitch 3-0 nylon the skin for closure sterile dressing placed a well-padded ulnar gutter based splint was then placed patient waken anesthesia taken recovery stable condition Condition: stable Disposition: PACU Complications:: None apparent
--- NOTE | 2025-01-21 10:57 | P.PNANES_ITS ---
[facility] Anesthesia Record Part I Anesthesia Record I Intake, IV Amount: 600 Hydration: Adequate Estimated blood loss (mL): 0 Urine output (mL): 0 Blood Products used (#): none Blood Pressure: 126/70 SaO2: 93 Pulse Rate: 73 Airway Patency: Patent Respiratory Rate: 16 Temperature: 97.0 F Patient is:: Nasal O2, Oral/Nasal airway, Stable and Somnolent Stable to PACU at:: 10:52
[2025-01-21] MEDS: MORPHINE 2MG/ML SYRINGE 1 MG IV ×2 (11:19→11:28)
--- NOTE | 2025-01-22 07:33 | EXP.ANES.II ---
[facility] Anesthesia Record Part II Anesthesia Record Part II Discharge Time: 12:05 Destination: Surgical Day Care (OP Surgery) PACU nurse assessment reviewed?: Yes Patient Condition:: Good Anesthesia Complications:: None Swallowing reflex intact?: Yes Airway Patency: Patent Cyanosis?: No Blood Pressure: 157/80 SaO2: 97 Respiratory Rate: 20 Pulse Rate: 84 Temperature: 97.8 F Mental Status: Alert & Oriented Pain level:: 2 Nausea and/or vomitting:: None Intake, IV Amount: 0 Hydration: Adequate
[2025-01-22 07:34] VITALS: BP 157/80; PULSE 84; RESP 20; TEMP 36.6; O2SAT 97
== END 2025-01-21 12:10 | disposition home or self-care (01) ==
PROVIDERS: Visit Provider Orthopaedic Surgery
PROC: (CPT 26615; principal; 2025-01-21 10:15)
DX: S62.337A Displaced fracture of neck of fifth metacarpal bone, left hand, initial encounter for closed fracture (principal); F17.210 Nicotine dependence, cigarettes, uncomplicated; W22.09XA Striking against other stationary object, initial encounter; Z90.49 Acquired absence of other specified parts of digestive tract
CPT/HCPCS: 26615; 73120; 76000; 80048; 85025; C1713; J0665; J0690; J1100; J2003; J2250; J2270; J2405; J2704; J3010; J7120

== ENCOUNTER 2025-02-06 09:52 | Outpatient (CLI) | payer OTHER, SELFPAY ==
--- NOTE | 2025-02-06 09:53 | XR_ITS ---
FINAL REPORT CLINICAL HISTORY: left hand post op COMPARISON: 01/10/2025 FINDINGS: LEFT HAND Three views demonstrate an orthopedic screw securing the fifth metacarpal. There is an overlying cast. IMPRESSION: Postoperative changes as above. Reviewed, Interpreted and Dictated by Malik Paige MD Transcribed by Gabbie Garcia Authenticated and [facility]
== END 2025-02-06 23:59 | disposition home or self-care (01) ==
LOC: RAD 09:53
PROVIDERS: Visit Provider Orthopaedic Surgery
DX: S62.337D Displaced fracture of neck of fifth metacarpal bone, left hand, subsequent encounter for fracture with routine healing (principal); X58.XXXD Exposure to other specified factors, subsequent encounter
CPT/HCPCS: 73130

== ENCOUNTER 2025-02-26 10:00 | Outpatient (RCR) | payer OTHER, SELFPAY ==
--- NOTE | 2025-02-17 11:14 | HMH.OTOPEV ---
OT Evaluation Rehab OT Outpatient Eval Start: 02/17/25 10:05 Freq: Status: Active Protocol: Document 02/17/25 10:56 KEELY (Rec: 02/17/25 11:11 KEELY [id number]) E-signed By Sofie Tejada, OT Outpatient Therapy Subjective History Subjective History The patient is a 24-year-old male referred to skilled outpatient occupational therapy services status post ORIF of the left fifth metacarpal fracture, approximately four weeks post-operation. 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 Despite this, he reports difficulty performing work- related tasks that require lifting, gripping, and manipulating tires and associated tools. Functional limitations appear primarily related to reduced liquor inspector strength, endurance, and coordination in the left hand. Wrist/Hand Eval Finger Range of Motion Right Little Finger Finger 70 Metacarpophalangeal Flexion Active Range of Motion (degrees) Finger 0 Metacarpophalangeal Extension Active Range of Motion ( degrees) Finger Proximal 100 Interphalangeal Flexion Active Range (degrees) Finger Distal 60 Interphalangeal Flexion Active Range of Motion (degrees) Erp Programmer/Pinch Strength Right Erp Programmer Strength 70 Measurement (lbs) Left Erp Programmer Strength 100 Measurement (lbs) QuickDASH Activities Please rate your ability to do the following activities in the last week by selecting the number below the appropriate response. 1. Open a tight or Unable new jar. 2. Do heavy Moderate difficulty gradall operator (e. g., wash sargent, floors). 3. Carry a shopping Moderate difficulty bag or briefcase. 4. Wash your back. Mild difficulty 5. Use a knife to Severe difficulty cut food. 6. Recreational Severe difficulty activities in which you take some force or impact through your arm, shoulder, or hand (e.g., golf, hammering, tennis, etc.). 7. During the past Moderately week, to what extent has your arm, shoulder or hand problem interfered with your normal social activities with family, friends , neighbors or groups? 8. During the past Very limited week, were you limited in your work or other regular daily activites as a result of your arm, shoulder or hand problem? 9. Arm, shoulder or Moderate hand pain. 10. Tingling (pins Moderate and needles) in your arm, shoulder or hand. 11. During the past Mild difficulty week, how much difficulty have you had sleeping because of the pain in your arm, shoulder or hand? Quick DASH 36 OT Patient Goals OT Patient Goals OT Short Term 1. Patient will demonstrate increased L hand liquor inspector Patient Goals strength by =10 lbs to improve ability to grasp and manipulate work tools. 2. Patient will complete therapeutic exercises and strengthening tasks with minimal compensatory movements and without pain increase >2/10. 3. Patient will improve AROM of the L hand and digits to within functional limits for grasp/release during simulated work tasks. 4. Patient will perform graded functional tasks (e.g., lifting small weighted objects, using hand tools) with good control and proper mechanics. OT Fpc Patient 1. Patient will demonstrate L hand liquor inspector strength within Goals functional limits compared to the R hand to safely lift and replace tires required for job duties. 2. Patient will complete work-simulated tasks ( sustained gripping, torqueing, lifting) for =10 minutes with no pain and no difficulty. 3. Patient will report =80% improvement in overall functional use of the L hand for daily and work-related activities. 4. Patient will achieve independence with a progressive home exercise program to maintain strength, ROM, and functional endurance. OT Outpatient Assessment Impairments Problems/Impairments Impaired Range of Motion,Impaired Strength,Subjective C /O Pain Prognosis Rehab Potential Good Clinical Impression Consistent with Yes Diagnosis Additional details: Although pain is minimal, limitations in strength, coordination, and sustained gripping impact her ability to safely and efficiently perform job duties such as lifting and manipulating tires and tools. The patient demonstrates good motivation and tolerance for therapy, indicating strong potential for functional improvement with continued skilled OT intervention focused on progressive strengthening, fine motor control, and task -specific retraining. Outpatient Therapy Plan of Care Treatment Plan May Include Therapeutic Exercise Yes Including Home Exercise Program Manual Therapy Yes Techniques Therapeutic Yes Activities to Return to Previous Functional/Work Level Thermal Modalities Yes Electrical Yes Stimulation Ultrasound/ Yes Phonophoresis Iontophoresis Yes Eval/Re-Eval Yes Frequency Times per week 1x/wk Duration Number of Weeks 4 weeks Addendums This patient is a No candidate for social or vocational rehab ? Patient/Guardian Yes verbally acknowledges understanding of treatment program and consents to further treatment? Patient/Guardian Yes verbally acknowledges understanding of diagnosis, prognosis and goals for treatment? Eval Complexity OT Charge 42099 - Low Complexity Shoulder/Elbow Eval Shoulder Objective Measurements Elbow Objective Measurements PHYSICIAN CERTIFICATION: I certify the specified therapy services for Mathew Couch Barron are required, authorized, and reviewed every 30 days.
== END 2025-02-26 23:59 | disposition home or self-care (01) ==
LOC: OT 10:00
PROVIDERS: Visit Provider Orthopaedic Surgery
DX: S62.339A Displaced fracture of neck of unspecified metacarpal bone, initial encounter for closed fracture (principal)
CPT/HCPCS: 97110; 97140; 97165

== ENCOUNTER 2025-02-27 09:48 | Outpatient (CLI) | payer OTHER, SELFPAY ==
--- NOTE | 2025-02-27 09:49 | XR_ITS ---
FINAL REPORT CLINICAL HISTORY: left hand fx COMPARISON: 02/06/2025 FINDINGS: LEFT HAND Three views demonstrate the overlying cast has been removed. Orthopedic screw secures healed fracture deformity of the distal 5th metacarpal. There is no acute fracture or dislocation. The visualized joint spaces are normally aligned. There is mild soft tissue swelling over the dorsum of the hand. IMPRESSION: Healed fracture deformity distal 5th metacarpal. Reviewed, Interpreted and Dictated by Malik Paige MD Transcribed by Yee Love Authenticated and [facility]
== END 2025-02-27 23:59 ==
LOC: RAD 09:49
PROVIDERS: Visit Provider Orthopaedic Surgery
DX: S62.397D Other fracture of fifth metacarpal bone, left hand, subsequent encounter for fracture with routine healing (principal); X58.XXXD Exposure to other specified factors, subsequent encounter
CPT/HCPCS: 73130